=== PATIENT | male | born 1945 | race Caucasian/White ===

== ENCOUNTER 2022-11-16 06:22 | Day surgery (SDC) | payer MEDICARE, BC ==
[2022-11-16] VITALS (11 sets, daily range): BP systolic 116–155; BP diastolic 42–63
[~2022-11-16] VITALS: Ht 167.6 cm; Wt 84.1 kg
[2022-11-16] MEDS ORDERED: diphenhydrAMINE 25mg capsule PO PRN (06:40)
[2022-11-16] MEDS ORDERED: normal saline 1,000 ML IV SCH (06:40)
[2022-11-16 07:34] LABS: BASOPHILS % (AUTO) 0.3 % (0-1); EOSINOPHILS # (AUTO) 0.2 X10'3 (0-0.9); EOSINOPHILS % (AUTO) 2.9 % (0-6); HEMATOCRIT 29.9 % (42.0-52.0); HEMOGLOBIN 9.6 g/dl (14.0-17.9); LYMPHOCYTES # (AUTO) 1.2 X10'3 (1.1-4.8); LYMPHOCYTES % (AUTO) 17.4 % (21-51); MEAN CORPUSCULAR HEMOGLOBIN 26.1 PG (27.0-31.0); MEAN CORPUSCULAR HGB CONC 32.1 g/dL (33.0-36.5); MEAN CORPUSCULAR VOLUME 81.4 FL (78-98); MEAN PLATELET VOLUME 8.9 FL (7.4-10.4); MONOCYTES # (AUTO) 0.8 X10'3 (0-0.9); MONOCYTES % (AUTO) 10.9 % (2-12); NEUTROPHILS # (AUTO) 4.7 X10'3 (1.8-7.7); NEUTROPHILS % (AUTO) 68.5 % (42-75); PLATELET COUNT 294 X10'3 (140-440); RED BLOOD COUNT 3.67 X10'6 (4.70-6.10); RED CELL DISTRIBUTION WIDTH 19.5 % (11.5-14.5); WHITE BLOOD COUNT 6.9 X10'3 (4.5-11.0)
[2022-11-16 08:05] LABS: ANION GAP 9 (8-16); BLOOD UREA NITROGEN 11 MG/DL (7-18); BUN/CREATININE RATIO 12.4 (10.0-20.0); CALCIUM 9.2 MG/DL (8.5-10.1); CHLORIDE 103 MMOL/L (99-107); CREATININE 0.89 MG/DL (0.60-1.10); GLUCOSE 124 MG/DL (70-104); MAGNESIUM 1.5 MG/DL (1.5-2.4); POTASSIUM 3.4 MMOL/L (3.5-5.1); SODIUM 140 MMOL/L (135-145); eGFR 83 ML/MIN
[2022-11-16 08:15] LABS: ANISOCYTOSIS 2+; ELLIPTOCYTES 1+; PLATELET ESTIMATE NORMAL; SCHISTOCYTES FEW
[2022-11-16] MEDS ORDERED: METF-900 PO (08:21)
[2022-11-16] MEDS ORDERED: CLOP75TA33 PO (08:21)
[2022-11-16] MEDS ORDERED: PRAM0.5T3 PO (08:21)
[2022-11-16] MEDS ORDERED: OXYB5TAB16 PO (08:21)
[2022-11-16] MEDS ORDERED: DOCU100C40 PO (08:21)
[2022-11-16] MEDS ORDERED: ROSU40TA PO (08:21)
[2022-11-16] MEDS ORDERED: TRAM50TA2 PO (08:21)
[2022-11-16] MEDS ORDERED: LISI40TA13 PO (08:21)
[2022-11-16] MEDS ORDERED: SPIR25TA5 PO (08:21)
[2022-11-16] MEDS ORDERED: GUAN1TAB28 PO (08:21)
[2022-11-16] MEDS ORDERED: CHOL10006 PO (08:21)
[2022-11-16] MEDS ORDERED: FOLI1TAB27 PO (08:21)
[2022-11-16] MEDS ORDERED: OMEG-5 PO (08:21)
[2022-11-16] MEDS ORDERED: SEMA0.258 SQ (08:21)
[2022-11-16] MEDS ORDERED: fentaNYL/PF 50MCG/1 ML 2ML syringe ONE (08:39)
[2022-11-16] MEDS ORDERED: heparin 1,000unit/ml 10ml vial 10 ML ONE (08:40)
[2022-11-16] MEDS ORDERED: midazolam 1 mg/ML 2ml injection ONE ×3 (08:40→09:58)
[2022-11-16] MEDS ORDERED: LIDOcaine 1% 30ml preserv. free vial ONE (08:40)
[2022-11-16] MEDS ORDERED: iohexol 350MG/ML 100ml bottle IV ONE (08:40)
[2022-11-16] MEDS ORDERED: ondansetron/PF 4mg/2ml inj IV PRN (11:30)
[2022-11-16] MEDS ORDERED: normal saline 1000ml 1,000 ML IV SCH (11:30)
[2022-11-16] MEDS ORDERED: proCHLORperazine 10 MG/2 ml inj IV PRN (11:30)
== END 2022-11-16 15:05 | disposition home or self-care (01) ==
LOC: SSTAY O 06:22
PROVIDERS: ATTEND Internal Medicine Cardiovascular Disease
DX: E11.51 Type 2 diabetes mellitus with diabetic peripheral angiopathy without gangrene (principal); I70.213 Atherosclerosis of native arteries of extremities with intermittent claudication, bilateral legs; I10 Essential (primary) hypertension; I25.2 Old myocardial infarction; I35.0 Nonrheumatic aortic (valve) stenosis; Z95.1 Presence of aortocoronary bypass graft; Z95.3 Presence of xenogenic heart valve; Z79.01 Long term (current) use of anticoagulants; Z79.899 Other long term (current) drug therapy; Z95.5 Presence of coronary angioplasty implant and graft; Z96.651 Presence of right artificial knee joint; Z90.49 Acquired absence of other specified parts of digestive tract; Z98.890 Other specified postprocedural states; Z87.891 Personal history of nicotine dependence; Z88.0 Allergy status to penicillin; Z88.5 Allergy status to narcotic agent; Z88.8 Allergy status to other drugs, medicaments and biological substances; Z82.49 Family history of ischemic heart disease and other diseases of the circulatory system
CPT/HCPCS: 36140; 36245; 36415; 75716; 80048; 82948; 83735; 85025; 85610; 93005; 99152; 99153; C1894; J1644; J2250; J3010; J3490; J7030; Q0163; Q9967; 85008; A4620; A6258; C1769

== ENCOUNTER 2023-01-25 08:00 | Inpatient (IN) | payer MEDICARE, BC ==
[2023-01-17 14:00] LABS: BASOPHILS % (AUTO) 0.3 % (0-1); EOSINOPHILS # (AUTO) 0.1 X10'3 (0-0.9); EOSINOPHILS % (AUTO) 1.8 % (0-6); LYMPHOCYTES # (AUTO) 1.2 X10'3 (1.1-4.8); LYMPHOCYTES % (AUTO) 15.8 % (21-51); MEAN CORPUSCULAR HEMOGLOBIN 25.2 PG (27.0-31.0); MEAN CORPUSCULAR HGB CONC 32.9 g/dL (33.0-36.5); MEAN CORPUSCULAR VOLUME 76.8 FL (78-98); MEAN PLATELET VOLUME 9.3 FL (7.4-10.4); MONOCYTES # (AUTO) 0.6 X10'3 (0-0.9); MONOCYTES % (AUTO) 7.5 % (2-12); NEUTROPHILS # (AUTO) 5.8 X10'3 (1.8-7.7); NEUTROPHILS % (AUTO) 74.6 % (42-75); PRE OP HEMATOCRIT 35.2 % (42.0-52.0); PRE OP HEMOGLOBIN 11.6 g/dL (14.0-17.9); PRE OP PLATELET COUNT 256 X10'3 (140-440); RED BLOOD COUNT 4.59 X10'6 (4.70-6.10); RED CELL DISTRIBUTION WIDTH 19.4 % (11.5-14.5)
[2023-01-17 14:04] LABS: CLARITY,URINE CLOUDY (Clear); COLOR,URINE STRAW (Yellow); GLUCOSE, URINE NEGATIVE (Neg); KETONES,URINE NEGATIVE (Neg); LEUKOCYTE ESTERASE ,URINE MODERATE (Neg); NITRITES, URINE NEGATIVE (Neg); OCCULT BLOOD,URINE TRACE-INTACT (Neg); PH,URINE 6.5 (4.8-8.0); PROTEIN,URINE 30 mg/dl (Neg); UROBILINOGEN,URINE 0.2 E.U/dL (0.2-1.0)
[2023-01-17 14:09] LABS: UA COLLECTION TYPE NON-SPECIFIED
[2023-01-17 14:11] LABS: SQUAMOUS EPITHELIAL CELL,UR FEW /LPF (FEW)
[2023-01-17 14:12] LABS: WBC CLUMPS,URINE FEW /HPF (NEGATIVE)
[2023-01-17 14:15] LABS: PRE OP PROTIME 10.9 SECONDS (9.0-12.0)
[2023-01-17 14:15] LABS: BACTERIA,URINE 1+ /HPF (Neg)
[2023-01-17 14:16] LABS: ALBUMIN 3.8 G/DL (3.4-5.0); ALKALINE PHOSPHATASE 102 IU/L (46-116); BLOOD UREA NITROGEN 15 MG/DL (7-18); CALCIUM 9.7 MG/DL (8.5-10.1); CHLORIDE 102 MMOL/L (99-107); CREATININE 0.94 MG/DL (0.60-1.10); PRE OP ALT 36 U/L (30-65); PRE OP ANION GAP 8 (8-16); PRE OP AST 26 U/L (10-37); PRE OP BILIRUB, TOTAL 0.5 MG/DL (0.0-1.0); PRE OP GLUCOSE 102 MG/DL (70-104); PRE OP POTASSIUM 3.8 MMOL/L (3.4-5.1); PRE OP SODIUM 139 MMOL/L (135-145); TOTAL CARBON DIOXIDE 29.4 MMOL/L (24-32); TOTAL PROTEIN 7.7 G/DL (6.4-8.2); eGFR 78 ML/MIN
[2023-01-17 14:17] LABS: WBC,URINE 50-100 /HPF (0-4)
[2023-01-17 14:19] LABS: MUCUS STRANDS MODERATE /LPF (Neg)
[2023-01-17 14:26] LABS: ANISOCYTOSIS 2+; ELLIPTOCYTES FEW; MICROCYTOSIS 1+; PLATELET ESTIMATE NORMAL
[2023-01-17 14:35] LABS: HEMOGLOBIN A1C 6.5 % (4.5-6.2)
[2023-01-23 07:30] LABS: ABG BASE EXCESS -1.4 mmol/L (-2.0-2.0); ABG HCO3 21.4 mmol/L (22.0-26.0); ABG OXYGEN SATURATION 96.9 % (94-97); ABG PCO2 (T) 30.2 mmHg (35.0-48.0); ABG PO2 (T) 90.8 mmHg (75.0-100.0); ALLEN'S TEST POSITIVE; FCOHb 0.3 % (0.0-3.9); FMetHb 0.2 % (0.0-1.5); FO2Hb 96.4 % (94-97); TOTAL HEMOGLOBIN 12.2 G/dl (14.0-17.9)
[2023-01-25] VITALS (20 sets, daily range): BP systolic 74–165; BP diastolic 40–87
[~2023-01-25] VITALS: Ht 167.6 cm; Wt 87.0 kg
[~2023-01-25 08:00] MED LIST: ASCO-139 PO; CHOL10006 PO; CLOP75TA33 PO; DOCU100C40 PO; FOLI1TAB27 PO; GUAN1TAB28 PO; LISI40TA13 PO; METF-900 PO; OMEG-5 PO; OXYB5TAB16 PO; PANT40TA54 PO; PRAM0.5T3 PO; ROSU40TA PO; SEMA0.258 SQ; SPIR25TA5 PO; TRAM50TA2 PO; cefazolin 2gm/D5W 100mL 100 ML IV ONE; famotidine 20mg tablet PO ONE; metoprolol tartrate 12.5mg (1/2 tablet) PO ONE; mupirocin 2% nasal ointment 1gm UD NS ONE; nitroPRUSSIDE (NIPRIDE) (200MCG/ML) 100ML Drip IV SCH; phenylephrine inj 50 MG in normal saline 250ml IV solN IV SCH; ringers solution, lacted 1,000 ML IV SCH
[2023-01-25] MEDS ORDERED: midazolam 1 mg/ML 2ml injection ONE ×2 (13:27→13:28)
[2023-01-25] MEDS ORDERED: fentaNYL /PF 50mcg/ml 5ml ampule ONE ×2 (13:28→16:06)
[2023-01-25] MEDS ORDERED: rocuronium 10mg/ml inj IV ONE ×2 (13:28→13:38)
[2023-01-25] MEDS ORDERED: sevoflurane 250ml liquid IH ONE (13:38)
[2023-01-25] MEDS ORDERED: protamine sulf. 10mg/ml inj. IV ONE (13:38)
[2023-01-25] MEDS ORDERED: propofol inj 20 ML IV ONE (14:47)
[2023-01-25] MEDS ORDERED: heparin 1,000unit/ml 10ml vial 10 ML ONE (14:47)
[2023-01-25] MEDS ORDERED: ePHEDrine 50MG/ML INJ. ONE (14:48)
[2023-01-25 15:53] LABS: ABG BASE EXCESS -9.8 mmol/L (-2.0-2.0); ABG HCO3 15.3 mmol/L (22.0-26.0); ABG OXYGEN SATURATION 99.6 % (94-97); ABG PCO2 31.5 mmHg (35.0-48.0); ABG PO2 249.9 mmHg (75.0-100.0); CL (ABG) 108 mmol/L (99-107); FCOHb 0.1 % (0.0-3.9); FMetHb 0.3 % (0.0-1.5); FO2Hb 99.2 % (94-97); GLUCOSE (ABG) 250 mg/dl (70-104); IONIZED CA (ABG) 1.03 mmol/L (1.10-1.30); K (ABG) 3.3 mmol/L (3.5-5.1); TOTAL HEMOGLOBIN 12.3 G/dl (14.0-17.9)
[2023-01-25] MEDS ORDERED: propofol 1000mg/100ml bottle 100 ML IV SCH (16:15)
[2023-01-25] MEDS ORDERED: FENTANYL-0.9 % NACL/PF 100 ML IV PRN ×2 (16:15→18:55)
[2023-01-25] MEDS ORDERED: propofol 1000mg/100ml bottle 100 ML IV ONE (16:21)
[2023-01-25] MEDS ORDERED: epiNEPHrine 1 mg/ml inj ONE (16:32)
--- NOTE | 2023-01-25 16:42 | NUR ---
Received from OR via HOSPITAL BED, accompanied by Anesthesiologist and report given by TANESHA Anesthesiologist. PATIENT SEDATED AND INTUBATED, NO S/S OF PAIN, V/S WNL, 20G TO LEFT FOREARM, ART LINE LEFT RADIAL, CENTRAL LINE RIGHT IJ. RIGHT NARES NG TUBE. F/C DRAINING CLEAR YELLOW URINE. ABDOMEN AND RIGHT [place] DRESSING C/D/I. LR CURRENTLY RUNNING. RIGHT PEDAL PULSES NOTED VIA DOPPLER. LEFT FEMORAL PULSE IS PALPABLE. SOFT RESTRAINT ON BILATERAL UPPER EXTREMITY WAS APPLIED. NO S/S OF DISTRESS AT THIS TIME. WILL KEEP MONITORING. Addendum: 01/25/23 at 1806 by Teddy Main RN Amended: Links added.
[2023-01-25 17:01] LABS: ABG HCO3 19.3 mmol/L (22.0-26.0); ABG OXYGEN SATURATION 98.7 % (94-97); ABG PCO2 (T) 32.8 mmHg (35.0-48.0); ABG PO2 (T) 151.6 mmHg (75.0-100.0); FCOHb 0.3 % (0.0-3.9); FMetHb 0.4 % (0.0-1.5); PATIENT TEMPERATURE 36.3; PEEP 5 cm H2O; RESPIRATORY RATE 12 b/min; TIDAL VOLUME 500 mL
[2023-01-25] MEDS ORDERED: ringers solution, lacted 1,000 ML IV SCH (17:10)
[2023-01-25] MEDS ORDERED: ondansetron/PF 4mg/2ml inj IV PRN (17:10)
[2023-01-25] MEDS ORDERED: albumin (Human) 5% 250ml 250 ML IV ONE ×3 (17:13→22:15)
[2023-01-25] MEDS ORDERED: potassium CL 10mEq/100ml bag 100 ML IV PRN (17:15)
[2023-01-25] MEDS ORDERED: NORepinephrine 8mg/ 250ml NS 250 ML IV PRN (17:15)
[2023-01-25] MEDS ORDERED: insulin glargine (Lantus) pen - multi-dose SQ PRN (17:15)
[2023-01-25] MEDS ORDERED: Insulin Reg/NS 100units/100mL 100 ML IV SCH (17:15)
[2023-01-25] MEDS ORDERED: mineral oil 133ml enema RC PRN (17:15)
[2023-01-25] MEDS ORDERED: potassium Cl 40MEQ/270ML bag 250 ML IV PRN (17:15)
[2023-01-25] MEDS ORDERED: magnesium 4gm in 100ml NS 100 ML IV PRN (17:15)
[2023-01-25] MEDS ORDERED: sodium phosphate inj. 15 MMOL in dextrose 5%-water 250 ML IV PRN (17:15)
[2023-01-25] MEDS ORDERED: sodium phosphate inj. 30 MMOL in dextrose 5%-water 250 ML IV PRN (17:15)
[2023-01-25] MEDS ORDERED: dextrose 50%-water 50ml dispensing syringe IV PRN ×3 (17:15→18:55)
[2023-01-25] MEDS ORDERED: metoclopramide 5 mg/ml inj IV PRN (17:15)
[2023-01-25] MEDS ORDERED: potassium Cl 40MEQ/1/2NS 520ml 520 ML IV PRN (17:15)
[2023-01-25] MEDS ORDERED: bisacodyl 10mg suppository rectal RC PRN (17:15)
[2023-01-25 17:20] LABS: ALBUMIN 2.1 G/DL (3.4-5.0); ANION GAP 12 (8-16); BLOOD UREA NITROGEN 12 MG/DL (7-18); BUN/CREATININE RATIO 17.9 (10.0-20.0); CALCIUM 7.2 MG/DL (8.5-10.1); CHLORIDE 111 MMOL/L (99-107); CREATININE 0.67 MG/DL (0.60-1.10); GLUCOSE 185 MG/DL (70-104); SODIUM 142 MMOL/L (135-145); eGFR > 90 ML/MIN
[2023-01-25 17:22] LABS: BASOPHILS % (AUTO) 0.2 % (0-1); EOSINOPHILS # (AUTO) 0.1 X10'3 (0-0.9); HEMATOCRIT 37.5 % (42.0-52.0); LYMPHOCYTES # (AUTO) 0.9 X10'3 (1.1-4.8); MEAN CORPUSCULAR HEMOGLOBIN 25.8 PG (27.0-31.0); MEAN CORPUSCULAR HGB CONC 32.1 g/dL (33.0-36.5); MEAN CORPUSCULAR VOLUME 80.5 FL (78-98); MEAN PLATELET VOLUME 10.1 FL (7.4-10.4); MONOCYTES # (AUTO) 0.9 X10'3 (0-0.9); MONOCYTES % (AUTO) 6.2 % (2-12); NEUTROPHILS % (AUTO) 86.6 % (42-75); PLATELET COUNT 122 X10'3 (140-440); RED BLOOD COUNT 4.66 X10'6 (4.70-6.10)
[2023-01-25 17:28] LABS: POTASSIUM 2.9 MMOL/L (3.5-5.1)
[2023-01-25 17:51] LABS: ANISOCYTOSIS 2+
[2023-01-25 17:52] LABS: BURR CELLS 2+; ELLIPTOCYTES 1+; PLATELET ESTIMATE DECREASED
--- NOTE | 2023-01-25 17:52 | NUR ---
PATIENT HAS MET ALL CRITERIA FOR TRANSFER TO ICU FLOOR. VSS. DRESSINGS INTACT. BED LOW AND 2 RAILS UP. RN PRESENT TO ACCEPT CARE OF PATIENT AND REPORT HAS BEEN CALLED. ALL QUESTIONS ANSWERED TO ACCEPTING RN. Addendum: 01/25/23 at 1818 by Teddy Main RN Amended: Links added.
[2023-01-25] MEDS: sodium chloride 0.45% 1,000 ML IV SCH (18:00)
--- NOTE | 2023-01-25 18:09 | NUR ---
Patient in room ICU 2042. I have received report from Teddy BRIGGS from PACU and had the opportunity to ask questions and assume patient care. Pt settled in bed. Art and PA connected and zeroed. Pt on monitor, Nicholson to gravity drain. Fentanyl & Prop. running as per PACU rate. Reported that Fentanyl started in route to ICU at rate of 25. Pt basically connected to monitor, pumps and patient report given, questions answered & plan of care reviewed with Darrel BRIGGS.
[2023-01-25] MEDS: potassium Cl 20mEq/100mL bag 100 ML IV PRN ×4 (18:13→22:22)
--- NOTE | 2023-01-25 18:44 | NUR ---
Called Dr. Dixon to clarify some orders and goals of care. OK to leave intubated over night. OK to re-order Fentanyl drip (it's hanging anyhow). OK to DC insulin drip protocol and use hyperglycemia protocol.
[2023-01-25] MEDS: albumin (Human) 5% 250ml 250 ML IV PRN ×3 (18:49→21:44)
[2023-01-25] MEDS ORDERED: MESSAGE TO PHARMACY PO ONE (18:55)
[2023-01-25] MEDS ORDERED: DEXTROSE 15 GM of carb/4 tabs (each vial/BOTTLE has 4 tablets) PO PRN ×2 (18:55)
[2023-01-25] MEDS ORDERED: glucagon, human recombinant 1mg kit SUBCUT PRN (18:55)
[2023-01-25] MEDS ORDERED: insulin Lispro (HumaLOG) vial - multi-dose SQ SCH (18:55)
[2023-01-25] MEDS: insulin glargine (Lantus) pen - multi-dose SQ SCH (20:00)
[2023-01-25] MEDS: atorvastatin 10mg tablet PO SCH (20:04)
[2023-01-25] MEDS: mupirocin 2% nasal ointment 1gm UD NS SCH (20:04)
[2023-01-25 20:12] LABS: BASOPHILS % (AUTO) 0.2 % (0-1); EOSINOPHILS # (AUTO) 0.1 X10'3 (0-0.9); EOSINOPHILS % (AUTO) 0.3 % (0-6); HEMATOCRIT 36.1 % (42.0-52.0); HEMOGLOBIN 11.5 g/dl (14.0-17.9); LYMPHOCYTES # (AUTO) 0.7 X10'3 (1.1-4.8); LYMPHOCYTES % (AUTO) 3.5 % (21-51); MEAN CORPUSCULAR HEMOGLOBIN 25.7 PG (27.0-31.0); MEAN CORPUSCULAR VOLUME 80.3 FL (78-98); MEAN PLATELET VOLUME 9.6 FL (7.4-10.4); MONOCYTES # (AUTO) 1.4 X10'3 (0-0.9); MONOCYTES % (AUTO) 7.5 % (2-12); NEUTROPHILS # (AUTO) 16.4 X10'3 (1.8-7.7); NEUTROPHILS % (AUTO) 88.5 % (42-75); PLATELET COUNT 121 X10'3 (140-440); RED CELL DISTRIBUTION WIDTH 18.9 % (11.5-14.5); WHITE BLOOD COUNT 18.5 X10'3 (4.5-11.0)
[2023-01-25] MEDS: propofol 1000mg/100ml bottle 100 ML IV SCH (20:45)
--- NOTE | 2023-01-25 22:03 | NUR ---
Called Dr. Dixon regarding hypotension. Notified him I have used all 3 of my albumins from the order set. Orders to give 1 dose of albumin (250ml of 5%) at a time t/o the night as long as his hemoglobin is OK. Notified him that the pt is in his usual rhythm (SR with PACs that don't perfuse) but his overall rate has slowed to 50ish with his perfusing rate being about 43-45 (EKG done and placed in chart), orders for Dopamine at set rate of 2mcg/kg/min for HR improvement.
[2023-01-25] MEDS ORDERED: DOPamine 400mg/D5W 250ml 250 ML IV PRN (22:05)
--- NOTE | 2023-01-25 22:54 | NUR ---
Ac Edwards applied for hypothermia
[2023-01-25 23:23] LABS: BASOPHILS # (AUTO) 0.1 X10'3 (0-0.2); BASOPHILS % (AUTO) 0.5 % (0-1); EOSINOPHILS % (AUTO) 0 % (0-6); HEMATOCRIT 30.7 % (42.0-52.0); HEMOGLOBIN 9.9 g/dl (14.0-17.9); LYMPHOCYTES # (AUTO) 0.5 X10'3 (1.1-4.8); LYMPHOCYTES % (AUTO) 2.8 % (21-51); MEAN CORPUSCULAR HEMOGLOBIN 25.7 PG (27.0-31.0); MEAN CORPUSCULAR HGB CONC 32.2 g/dL (33.0-36.5); MEAN CORPUSCULAR VOLUME 79.7 FL (78-98); MEAN PLATELET VOLUME 9.9 FL (7.4-10.4); MONOCYTES # (AUTO) 0.8 X10'3 (0-0.9); NEUTROPHILS # (AUTO) 15.5 X10'3 (1.8-7.7); NEUTROPHILS % (AUTO) 91.7 % (42-75); PLATELET COUNT 110 X10'3 (140-440); RED BLOOD COUNT 3.86 X10'6 (4.70-6.10); RED CELL DISTRIBUTION WIDTH 18.6 % (11.5-14.5); WHITE BLOOD COUNT 16.9 X10'3 (4.5-11.0)
[2023-01-25 23:27] LABS: ALBUMIN 3.7 G/DL (3.4-5.0); ANION GAP 11 (8-16); BLOOD UREA NITROGEN 15 MG/DL (7-18); BUN/CREATININE RATIO 16.5 (10.0-20.0); CALCIUM 7.2 MG/DL (8.5-10.1); CHLORIDE 111 MMOL/L (99-107); CREATININE 0.91 MG/DL (0.60-1.10); GLUCOSE 143 MG/DL (70-104); MAGNESIUM 1.2 MG/DL (1.5-2.4); PHOSPHORUS 3.2 MG/DL (2.3-4.5); POTASSIUM 5.1 MMOL/L (3.5-5.1); SODIUM 144 MMOL/L (135-145); eGFR 81 ML/MIN
[2023-01-25] MEDS: magnesium 2GM in 50ml NS 50 ML IV PRN (23:33)
[2023-01-25] MEDS: niCARDipine-NS 40mg/200ml IVPB 200 ML IV PRN (23:50)
[2023-01-25] MEDS: ceFAZolin/D5W- 1GM premix 50 ML IV SCH (23:52)
[2023-01-26] VITALS (26 sets, daily range): BP systolic 106–155; BP diastolic 40–73
[2023-01-26 03:10] LABS: BASOPHILS % (AUTO) 0.1 % (0-1); EOSINOPHILS % (AUTO) 0.1 % (0-6); HEMATOCRIT 29.3 % (42.0-52.0); HEMOGLOBIN 9.6 g/dl (14.0-17.9); LYMPHOCYTES # (AUTO) 0.6 X10'3 (1.1-4.8); LYMPHOCYTES % (AUTO) 3.9 % (21-51); MEAN CORPUSCULAR HGB CONC 32.6 g/dL (33.0-36.5); MEAN CORPUSCULAR VOLUME 79.8 FL (78-98); MEAN PLATELET VOLUME 10.2 FL (7.4-10.4); MONOCYTES # (AUTO) 1.1 X10'3 (0-0.9); MONOCYTES % (AUTO) 6.7 % (2-12); NEUTROPHILS # (AUTO) 14.2 X10'3 (1.8-7.7); NEUTROPHILS % (AUTO) 89.2 % (42-75); PLATELET COUNT 119 X10'3 (140-440); RED BLOOD COUNT 3.67 X10'6 (4.70-6.10); RED CELL DISTRIBUTION WIDTH 18.7 % (11.5-14.5); WHITE BLOOD COUNT 15.9 X10'3 (4.5-11.0)
--- NOTE | 2023-01-26 03:13 | NUR ---
Pt's BP continues to be rather labile through out the night. He often requires just a 1mg/hr rate of nicardapine to treat his hypertension when he is awake. When he falls back to sleep/sedated he requires dopamine (occasionally less than the ordered 2mcg/kg/min but never over that). Pt got 1250ml of albumin 5% since surgery. Last Hgb < 10 so holding off on that for now and just using his drips.
[2023-01-26 03:20] LABS: ALANINE AMINOTRANSFERASE 17 U/L (12-78); ALBUMIN 3.5 G/DL (3.4-5.0); ALBUMIN/GLOBULIN RATIO 2.5 (1.1-1.5); ALKALINE PHOSPHATASE 43 IU/L (46-116); ANION GAP 10 (8-16); ASPARTATE AMINO TRANSFERASE 19 U/L (10-37); BILIRUBIN,TOTAL 0.5 MG/DL (0.1-1.0); BLOOD UREA NITROGEN 14 MG/DL (7-18); BUN/CREATININE RATIO 15.9 (10.0-20.0); CALCIUM 7.5 MG/DL (8.5-10.1); CHLORIDE 110 MMOL/L (99-107); CREATININE 0.88 MG/DL (0.60-1.10); GLUCOSE 161 MG/DL (70-104); MAGNESIUM 2.8 MG/DL (1.5-2.4); POTASSIUM 4.5 MMOL/L (3.5-5.1); SODIUM 141 MMOL/L (135-145); TOTAL CARBON DIOXIDE 20.6 MMOL/L (24-32); TOTAL PROTEIN 4.9 G/DL (6.4-8.2); TRIGLYCERIDES 125 MG/DL (20-135); eGFR 84 ML/MIN
[2023-01-26 03:27] LABS: ABG BASE EXCESS -3.8 mmol/L (-2.0-2.0); ABG HCO3 21.5 mmol/L (22.0-26.0); ABG OXYGEN SATURATION 92.7 % (94-97); ABG PCO2 (T) 41.5 mmHg (35.0-48.0); ABG PO2 (T) 76.7 mmHg (75.0-100.0); FCOHb 0.3 % (0.0-3.9); FMetHb 0.4 % (0.0-1.5); FO2Hb 92.1 % (94-97); PATIENT TEMPERATURE 37.8; PEEP 5 cm H2O; RESPIRATORY RATE 12 b/min; TIDAL VOLUME 500 mL; TOTAL HEMOGLOBIN 10.4 G/dl (14.0-17.9)
[2023-01-26] MEDS: propofol 1000mg/100ml bottle 100 ML IV SCH (03:52)
--- NOTE | 2023-01-26 04:49 | NUR ---
Pt continues to wake up despite boluses of sedation. Pt completely appropriate, stable t/o the night. MD notified, OK to extubate if he meets parameters.
--- NOTE | 2023-01-26 05:00 | NUR ---
Extubated to 2L NC. Tolerating well, no issues.
[2023-01-26] MEDS: morphine 4 MG/ML inj SYRINge IV PRN ×7 (05:42→21:15)
--- NOTE | 2023-01-26 06:30 | NUR ---
Patient in room ICU 2042. I have received report from germain and had the opportunity to ask questions and assume patient care.
[2023-01-26] MEDS: oxybutynin 5mg tablet PO SCH (09:00)
[2023-01-26] MEDS: ceFAZolin/D5W- 1GM premix 50 ML IV SCH ×2 (09:22→16:28)
[2023-01-26] MEDS: mupirocin 2% nasal ointment 1gm UD NS SCH ×2 (09:22→19:40)
--- NOTE | 2023-01-26 12:55 | NUR ---
pt awake and alert, c/o continual dry mouth and abd pain. discussed pain med with pa and md as ms 4mg is short acting, but does help- wanting pt to remain npo with ice chips sparingly. at bs intermittently.
[2023-01-26] MEDS: acetaminophen 325mg tablet PO PRN (16:28)
--- NOTE | 2023-01-26 17:16 | NUR ---
temp up- tylenol given. pt went from nonproductive cough to productive cough- small brown thick sx. using is and flutter valve now on own with encouragement. tolerated dangle with PT fairly well.
--- NOTE | 2023-01-26 18:47 | NUR ---
Reviewed chart at bedside with pt. Goals for tonight are work on Pulmonary Toilet, control temp and pain. Monitor bowels for increased bowel sounds. Minimal ice ships OK with MD, pt got PO meds earlier and tolerated well. Sat up at bedside with PT today but did not get out, will try tomorrow. Very low dose Nicardapine started for SBP>140. Worked on IS and flutter valve with pt.
[2023-01-26] MEDS: insulin glargine (Lantus) pen - multi-dose SQ SCH (19:10)
[2023-01-26] MEDS: atorvastatin 10mg tablet PO SCH (19:40)
[2023-01-26] MEDS: enoxaparin 40mg/0.4ml syringe SUBCUT SCH (19:40)
[2023-01-26] MEDS ORDERED: mineral oil/petrolatum ophthal oint EACHEYE SCH (20:00)
[2023-01-27] VITALS (24 sets, daily range): BP systolic 112–159; BP diastolic 45–65
[2023-01-27] MEDS: ceFAZolin/D5W- 1GM premix 50 ML IV SCH ×2 (00:15→08:27)
[2023-01-27 02:49] LABS: BASOPHILS % (AUTO) 0.4 % (0-1); EOSINOPHILS # (AUTO) 0.3 X10'3 (0-0.9); EOSINOPHILS % (AUTO) 2.4 % (0-6); HEMATOCRIT 29.9 % (42.0-52.0); HEMOGLOBIN 9.5 g/dl (14.0-17.9); LYMPHOCYTES # (AUTO) 0.9 X10'3 (1.1-4.8); MEAN CORPUSCULAR HEMOGLOBIN 25.7 PG (27.0-31.0); MEAN CORPUSCULAR HGB CONC 31.8 g/dL (33.0-36.5); MEAN CORPUSCULAR VOLUME 80.7 FL (78-98); MEAN PLATELET VOLUME 10.3 FL (7.4-10.4); MONOCYTES # (AUTO) 1.3 X10'3 (0-0.9); MONOCYTES % (AUTO) 9.7 % (2-12); NEUTROPHILS # (AUTO) 10.4 X10'3 (1.8-7.7); NEUTROPHILS % (AUTO) 80.5 % (42-75); PLATELET COUNT 113 X10'3 (140-440); RED BLOOD COUNT 3.71 X10'6 (4.70-6.10); RED CELL DISTRIBUTION WIDTH 19.1 % (11.5-14.5); WHITE BLOOD COUNT 12.9 X10'3 (4.5-11.0)
[2023-01-27 02:58] LABS: ALBUMIN 3.1 G/DL (3.4-5.0); ANION GAP 10 (8-16); BLOOD UREA NITROGEN 8 MG/DL (7-18); BUN/CREATININE RATIO 10.4 (10.0-20.0); CALCIUM 8.1 MG/DL (8.5-10.1); CHLORIDE 108 MMOL/L (99-107); CREATININE 0.77 MG/DL (0.60-1.10); GLUCOSE 139 MG/DL (70-104); POTASSIUM 3.9 MMOL/L (3.5-5.1); SODIUM 141 MMOL/L (135-145); TOTAL CARBON DIOXIDE 22.9 MMOL/L (24-32); eGFR > 90 ML/MIN
[2023-01-27] MEDS: morphine 4 MG/ML inj SYRINge IV PRN ×6 (04:22→23:51)
[2023-01-27] MEDS: niCARDipine-NS 40mg/200ml IVPB 200 ML IV PRN ×3 (04:28→20:02)
[2023-01-27 04:59] LABS: ANISOCYTOSIS 2+; PLATELET ESTIMATE DECREASED
[2023-01-27 05:00] LABS: ELLIPTOCYTES 1+
[2023-01-27 05:01] LABS: BURR CELLS 1+; POIKILOCYTOSIS FEW; SCHISTOCYTES FEW
[2023-01-27] MEDS: acetaminophen 325mg tablet PO PRN ×2 (05:01→21:25)
--- NOTE | 2023-01-27 06:30 | NUR ---
Patient in room ICU 2042. I have received report from CHESTER Rojo and had the opportunity to ask questions and assume patient care.
[2023-01-27] MEDS: mupirocin 2% nasal ointment 1gm UD NS SCH (08:39)
[2023-01-27] MEDS: enoxaparin 40mg/0.4ml syringe SUBCUT SCH ×2 (08:39→20:14)
[2023-01-27] MEDS: oxybutynin 5mg tablet PO SCH (08:40)
[2023-01-27] MEDS: sodium chloride 0.45% 1,000 ML IV SCH (17:15)
--- NOTE | 2023-01-27 18:21 | NUR ---
Problems reprioritized. Patient report given, questions answered & plan of care reviewed with CHESTER Degroot.
[2023-01-27] MEDS: atorvastatin 10mg tablet PO SCH (20:14)
[2023-01-27] MEDS: insulin glargine (Lantus) pen - multi-dose SQ SCH (20:41)
[2023-01-28] VITALS (20 sets, daily range): BP systolic 115–171; BP diastolic 49–83
[2023-01-28] MEDS: morphine 4 MG/ML inj SYRINge IV PRN ×5 (00:44→18:19)
[2023-01-28 04:31] LABS: BASOPHILS % (AUTO) 0.3 % (0-1); EOSINOPHILS # (AUTO) 0.4 X10'3 (0-0.9); HEMATOCRIT 27.3 % (42.0-52.0); LYMPHOCYTES # (AUTO) 0.9 X10'3 (1.1-4.8); LYMPHOCYTES % (AUTO) 7.5 % (21-51); MEAN CORPUSCULAR HEMOGLOBIN 26.4 PG (27.0-31.0); MEAN CORPUSCULAR HGB CONC 32.8 g/dL (33.0-36.5); MEAN CORPUSCULAR VOLUME 80.7 FL (78-98); MEAN PLATELET VOLUME 9.7 FL (7.4-10.4); MONOCYTES # (AUTO) 1.3 X10'3 (0-0.9); MONOCYTES % (AUTO) 10.6 % (2-12); NEUTROPHILS # (AUTO) 9.3 X10'3 (1.8-7.7); NEUTROPHILS % (AUTO) 78.6 % (42-75); PLATELET COUNT 136 X10'3 (140-440); RED BLOOD COUNT 3.39 X10'6 (4.70-6.10); RED CELL DISTRIBUTION WIDTH 18.6 % (11.5-14.5); WHITE BLOOD COUNT 11.9 X10'3 (4.5-11.0)
[2023-01-28 04:34] LABS: ALBUMIN 2.8 G/DL (3.4-5.0); ANION GAP 7 (8-16); BLOOD UREA NITROGEN 7 MG/DL (7-18); BUN/CREATININE RATIO 7.8 (10.0-20.0); CALCIUM 8.5 MG/DL (8.5-10.1); CHLORIDE 106 MMOL/L (99-107); GLUCOSE 133 MG/DL (70-104); POTASSIUM 3.8 MMOL/L (3.5-5.1); SODIUM 139 MMOL/L (135-145); TOTAL CARBON DIOXIDE 25.8 MMOL/L (24-32); eGFR 82 ML/MIN
[2023-01-28] MEDS: acetaminophen 325mg tablet PO PRN ×3 (05:34→22:52)
[2023-01-28] MEDS: potassium Cl 20mEq/100mL bag 100 ML IV PRN (05:34)
--- NOTE | 2023-01-28 06:16 | NUR ---
Problems reprioritized. Patient report given, questions answered & plan of care reviewed with Charlene BRIGGS.
[2023-01-28 07:23] LABS: MAGNESIUM 1.6 MG/DL (1.5-2.4); PHOSPHORUS 2.2 MG/DL (2.3-4.5)
[2023-01-28] MEDS: enoxaparin 40mg/0.4ml syringe SUBCUT SCH ×2 (07:25→21:16)
[2023-01-28] MEDS: oxybutynin 5mg tablet PO SCH (07:25)
[2023-01-28] MEDS: lisinopril 10 MG tablet PO SCH (07:25)
[2023-01-28] MEDS ORDERED: furosemide 40mg/4ml inj IV ONE (07:55)
--- NOTE | 2023-01-28 09:39 | NUR ---
Sanjuanita REYNOSO aware of pt's fever and need for Cardene gtt. and that pt. is not receiving his home HTN meds. Lisinopril ordered and given. Cardene gtt off since 0800. Pt. encouraged to use I.S. and flutter valve.
[2023-01-28] MEDS: Neutra Phos packet PO PRN ×2 (10:33→15:53)
[2023-01-28] MEDS: magnesium 2GM in 50ml NS 50 ML IV PRN (10:36)
--- NOTE | 2023-01-28 14:02 | NUR ---
RN notified Dr. Dixon of pt. being off Nicardipine since this am and receiving Lisinopril ordered by Lesley REYNOSO. RN asked about bowel care as pt. has not had a BM. Stated pt. is expected to have an ileus as his abd. was opened in surgery and to not add any bowel meds.
--- NOTE | 2023-01-28 18:15 | NUR ---
Patient in room ICU 2042. I have received report from Nevaeh BRIGGS and had the opportunity to ask questions and assume patient care, patient c/o incisional pain and medicated with morphine 4 mg IV as ordered with relief.
--- NOTE | 2023-01-28 18:30 | NUR ---
Report called to receiving nurse eBttina BRIGGS. Transferred via bed with home CPAP machine as only Belongings . Special Issues communicated to receiving nurse.
[2023-01-28] MEDS: insulin glargine (Lantus) pen - multi-dose SQ SCH (21:00)
[2023-01-28] MEDS: atorvastatin 10mg tablet PO SCH (21:15)
--- NOTE | 2023-01-28 21:34 | NUR ---
sent respiratory a page to help set up pt's BIPAP machine.
[2023-01-29] VITALS (8 sets, daily range): BP systolic 142–185; BP diastolic 58–74
--- NOTE | 2023-01-29 00:09 | NUR ---
pt sleeping. Addendum: 01/29/23 at 0010 by Bettina Hansen RN Amended: Links added.
[2023-01-29] MEDS: morphine 4 MG/ML inj SYRINge IV PRN ×3 (03:06→17:08)
[2023-01-29] MEDS: acetaminophen 325mg tablet PO PRN ×3 (03:06→23:03)
--- NOTE | 2023-01-29 04:32 | NUR ---
pt sleeping IS not done. Addendum: 01/29/23 at 0432 by Bettina Hansen RN Amended: Links added.
--- NOTE | 2023-01-29 04:46 | NUR ---
pt has gotten tylenol x2 this shift for fever, and morphine once for pain in his wrists. both medications have been effective.
--- NOTE | 2023-01-29 06:30 | NUR ---
Patient in room PCU 3020. I have received report from CHESTER Sanchez and had the opportunity to ask questions and assume patient care.
--- NOTE | 2023-01-29 06:37 | NUR ---
Problems reprioritized. Patient report given, questions answered & plan of care reviewed with Sara BRIGGS. Stable at shift change.
[2023-01-29 06:52] LABS: BASOPHILS % (AUTO) 0.3 % (0-1); EOSINOPHILS # (AUTO) 0.3 X10'3 (0-0.9); EOSINOPHILS % (AUTO) 2.7 % (0-6); HEMATOCRIT 29.5 % (42.0-52.0); HEMOGLOBIN 9.6 g/dl (14.0-17.9); LYMPHOCYTES # (AUTO) 0.8 X10'3 (1.1-4.8); LYMPHOCYTES % (AUTO) 7.3 % (21-51); MEAN CORPUSCULAR HEMOGLOBIN 26.2 PG (27.0-31.0); MEAN CORPUSCULAR HGB CONC 32.5 g/dL (33.0-36.5); MEAN CORPUSCULAR VOLUME 80.6 FL (78-98); MEAN PLATELET VOLUME 9.5 FL (7.4-10.4); MONOCYTES # (AUTO) 1.3 X10'3 (0-0.9); MONOCYTES % (AUTO) 11.4 % (2-12); NEUTROPHILS # (AUTO) 8.6 X10'3 (1.8-7.7); NEUTROPHILS % (AUTO) 78.3 % (42-75); PLATELET COUNT 180 X10'3 (140-440); RED BLOOD COUNT 3.66 X10'6 (4.70-6.10)
[2023-01-29 07:16] LABS: ALBUMIN 2.8 G/DL (3.4-5.0); ANION GAP 10 (8-16); BLOOD UREA NITROGEN 11 MG/DL (7-18); BUN/CREATININE RATIO 11.3 (10.0-20.0); CALCIUM 8.8 MG/DL (8.5-10.1); CHLORIDE 101 MMOL/L (99-107); CREATININE 0.97 MG/DL (0.60-1.10); GLUCOSE 147 MG/DL (70-104); MAGNESIUM 1.6 MG/DL (1.5-2.4); PHOSPHORUS 3.1 MG/DL (2.3-4.5); POTASSIUM 3.6 MMOL/L (3.5-5.1); SODIUM 137 MMOL/L (135-145); TOTAL CARBON DIOXIDE 25.6 MMOL/L (24-32); eGFR 75 ML/MIN
[2023-01-29] MEDS: oxybutynin 5mg tablet PO SCH (08:47)
[2023-01-29] MEDS: clopidogrel 75mg tablet PO SCH (08:47)
[2023-01-29] MEDS: lisinopril 10 MG tablet PO SCH (08:48)
[2023-01-29] MEDS: enoxaparin 40mg/0.4ml syringe SUBCUT SCH ×2 (08:49→19:58)
[2023-01-29] MEDS ORDERED: traMADol 50MG tablet PO PRN (11:35)
[2023-01-29] MEDS: GUANFACINE HCL 1 MG PO SCH (12:00)
[2023-01-29] MEDS: ascorbic acid 500mg tablet PO SCH (13:02)
[2023-01-29] MEDS: folic acid 1mg tablet PO SCH (13:02)
[2023-01-29] MEDS: atorvastatin 20mg tablet PO SCH (13:02)
[2023-01-29] MEDS: pramipexole 0.25mg tablet PO SCH (19:58)
[2023-01-29] MEDS: morphine 2 MG/ML inj. syringe IV PRN (20:00)
[2023-01-29] MEDS: insulin glargine (Lantus) pen - multi-dose SQ SCH (21:00)
--- NOTE | 2023-01-29 23:15 | NUR ---
paged respiratory PCU 6010. Lesley Conroy Please help pt with BiPAP machine he wants to go to sleep and when I try to help its not sitting right. Thank you.
[2023-01-30] VITALS (7 sets, daily range): BP systolic 118–181; BP diastolic 56–88
--- NOTE | 2023-01-30 00:05 | NUR ---
Pt sleeping, no IS Addendum: 01/30/23 at 0007 by Bettina Hansen RN Amended: Links added.
--- NOTE | 2023-01-30 00:06 | NUR ---
coatings inspector VS done at 1800,2200, and 0200. Addendum: 01/30/23 at 0007 by Bettina Hansen RN Amended: Links added.
--- NOTE | 2023-01-30 00:41 | NUR ---
IS not used as pt is sleeping. Addendum: 01/30/23 at 0042 by Bettina Hansen RN Amended: Links added.
[2023-01-30] MEDS: ondansetron/PF 4mg/2ml inj IV PRN ×2 (04:32→13:37)
[2023-01-30] MEDS: morphine 4 MG/ML inj SYRINge IV PRN (04:33)
--- NOTE | 2023-01-30 05:32 | NUR ---
spoke with Dr. Hall regarding pt BP of 181/88. Dr. Hall gave a new order of 15mg Hydralazine Q6hr PRN via IV. Order was read back to .
[2023-01-30] MEDS: hydrALAZINE 20mg/ml inj. IV PRN ×2 (05:50→15:07)
--- NOTE | 2023-01-30 06:27 | NUR ---
Problems reprioritized. Patient report given, questions answered & plan of care reviewed with Sara BRIGGS. Pt stable at shift change.
[2023-01-30] MEDS: atorvastatin 20mg tablet PO SCH (08:46)
[2023-01-30] MEDS: oxybutynin 5mg tablet PO SCH (08:46)
[2023-01-30] MEDS: ascorbic acid 500mg tablet PO SCH (08:46)
[2023-01-30] MEDS: clopidogrel 75mg tablet PO SCH (08:46)
[2023-01-30] MEDS: lisinopril 10 MG tablet PO SCH (08:47)
[2023-01-30] MEDS: folic acid 1mg tablet PO SCH (08:47)
[2023-01-30] MEDS: cholecalciferol (vitamin D3) 1,000 unit (25mcg) tablet PO SCH (08:48)
[2023-01-30] MEDS: enoxaparin 40mg/0.4ml syringe SUBCUT SCH ×2 (08:49→19:27)
[2023-01-30] MEDS ORDERED: oxyCODONE IR 5mg (immed. release) tablet PO PRN (09:55)
[2023-01-30] MEDS: morphine 2 MG/ML inj. syringe IV PRN (10:32)
[2023-01-30] MEDS: GUANFACINE HCL 1 MG PO SCH (11:10)
--- NOTE | 2023-01-30 11:48 | NUR ---
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 Pt initially on a clear liquid diet which was advanced to full liquids 01/29 and regular today. Lunch to be the first meal on regular diet. Regardless of PO intake pt unable to meet estimated nutrient needs while on a liquid diet. No documented BM since admit though pt passing gas per PA note today. Pt with no routine bowel care available though with PRN bowel care, not given per EMR. Will continue to follow closely and make recommendations as appropriate pending trends in PO intake with diet advancement. Recommendations: 1) Continue regular diet; change to heart healthy diet if pt with adequate PO intake 2) Monitor need for ONS/additional protein 3) Routine bowel care 4) Daily scaled weights per rx Addendum: 01/30/23 at [address] Amended: Links added.
[2023-01-30 18:07] LABS: ALBUMIN 2.7 G/DL (3.4-5.0); ANION GAP 10 (8-16); BLOOD UREA NITROGEN 10 MG/DL (7-18); BUN/CREATININE RATIO 10.6 (10.0-20.0); CALCIUM 8.7 MG/DL (8.5-10.1); CHLORIDE 98 MMOL/L (99-107); CREATININE 0.94 MG/DL (0.60-1.10); GLUCOSE 175 MG/DL (70-104); POTASSIUM 3.5 MMOL/L (3.5-5.1); SODIUM 135 MMOL/L (135-145); TOTAL CARBON DIOXIDE 26.7 MMOL/L (24-32); eGFR 78 ML/MIN
[2023-01-30] MEDS: pramipexole 0.25mg tablet PO SCH (21:41)
[2023-01-30] MEDS: insulin glargine (Lantus) pen - multi-dose SQ SCH (21:49)
[2023-01-31 02:00] VITALS: BP 151/60
[2023-01-31 06:00] VITALS: BP 103/67
[2023-01-31 06:43] LABS: BASOPHILS % (AUTO) 0.2 % (0-1); EOSINOPHILS # (AUTO) 0.4 X10'3 (0-0.9); EOSINOPHILS % (AUTO) 3.9 % (0-6); HEMOGLOBIN 9.4 g/dl (14.0-17.9); LYMPHOCYTES # (AUTO) 0.8 X10'3 (1.1-4.8); MEAN CORPUSCULAR HEMOGLOBIN 26.2 PG (27.0-31.0); MEAN CORPUSCULAR HGB CONC 32.6 g/dL (33.0-36.5); MEAN CORPUSCULAR VOLUME 80.4 FL (78-98); MONOCYTES # (AUTO) 1.1 X10'3 (0-0.9); MONOCYTES % (AUTO) 9.7 % (2-12); NEUTROPHILS # (AUTO) 8.7 X10'3 (1.8-7.7); NEUTROPHILS % (AUTO) 79.2 % (42-75); PLATELET COUNT 254 X10'3 (140-440); RED CELL DISTRIBUTION WIDTH 19.2 % (11.5-14.5)
[2023-01-31 06:48] LABS: ALBUMIN 2.5 G/DL (3.4-5.0); ANION GAP 9 (8-16); BLOOD UREA NITROGEN 12 MG/DL (7-18); BUN/CREATININE RATIO 12.5 (10.0-20.0); CALCIUM 9.2 MG/DL (8.5-10.1); CHLORIDE 101 MMOL/L (99-107); CREATININE 0.96 MG/DL (0.60-1.10); GLUCOSE 163 MG/DL (70-104); POTASSIUM 3.7 MMOL/L (3.5-5.1); SODIUM 138 MMOL/L (135-145); TOTAL CARBON DIOXIDE 28.3 MMOL/L (24-32); eGFR 76 ML/MIN
--- NOTE | 2023-01-31 06:48 | NUR ---
Problems reprioritized. Patient report given, questions answered & plan of care reviewed with Darwin BRIGGS.
[2023-01-31] MEDS: GUANFACINE HCL 1 MG PO SCH ×2 (08:00→11:53)
[2023-01-31] MEDS: atorvastatin 20mg tablet PO SCH (08:42)
[2023-01-31] MEDS: clopidogrel 75mg tablet PO SCH (08:42)
[2023-01-31] MEDS: oxybutynin 5mg tablet PO SCH (08:42)
[2023-01-31] MEDS: ascorbic acid 500mg tablet PO SCH (08:42)
[2023-01-31] MEDS: cholecalciferol (vitamin D3) 1,000 unit (25mcg) tablet PO SCH (08:42)
[2023-01-31] MEDS: folic acid 1mg tablet PO SCH (08:42)
[2023-01-31] MEDS: lisinopril 20mg tablet PO SCH (08:43)
[2023-01-31] MEDS: enoxaparin 40mg/0.4ml syringe SUBCUT SCH ×2 (08:45→20:45)
[2023-01-31] MEDS ORDERED: lactulose 20gm/30ml cup PO ONE (10:25)
[2023-01-31] MEDS ORDERED: traMADol 50MG tablet PO PRN (10:25)
[2023-01-31] MEDS ORDERED: bisacodyl 10mg suppository rectal RC STA (10:27)
[2023-01-31 11:00] VITALS: BP 158/74
[2023-01-31] MEDS: lactose-reduced food (Ensure High Protein) 237ml bottle PO SCH ×2 (13:00→17:44)
[2023-01-31 15:00] VITALS: BP 117/61
[2023-01-31 18:00] VITALS: BP 138/80
--- NOTE | 2023-01-31 18:35 | NUR ---
Patient in room PCU 3020. I have received report from CHESTER DE ANDA and had the opportunity to ask questions and assume patient care.
[2023-01-31] MEDS: pramipexole 0.25mg tablet PO SCH (20:45)
[2023-01-31] MEDS: insulin glargine (Lantus) pen - multi-dose SQ SCH (21:10)
[2023-01-31 22:00] VITALS: BP 117/53
[2023-01-31] MEDS: ondansetron/PF 4mg/2ml inj IV PRN (23:11)
[2023-02-01 02:00] VITALS: BP 133/83
--- NOTE | 2023-02-01 05:30 | NUR ---
Nicholson cath pulled out , pt not void yet but no bladder distention noted.
[2023-02-01 06:00] VITALS: BP 116/68
--- NOTE | 2023-02-01 06:10 | NUR ---
Problems reprioritized. Patient report given, questions answered & plan of care reviewed with CHESTER SEGOVIA.
[2023-02-01 07:36] LABS: BASOPHILS % (AUTO) 0.2 % (0-1); EOSINOPHILS # (AUTO) 0.3 X10'3 (0-0.9); EOSINOPHILS % (AUTO) 2.8 % (0-6); HEMATOCRIT 29.7 % (42.0-52.0); HEMOGLOBIN 9.5 g/dl (14.0-17.9); LYMPHOCYTES # (AUTO) 0.8 X10'3 (1.1-4.8); LYMPHOCYTES % (AUTO) 8.5 % (21-51); MEAN CORPUSCULAR HGB CONC 32.1 g/dL (33.0-36.5); MEAN PLATELET VOLUME 8.9 FL (7.4-10.4); MONOCYTES % (AUTO) 11.4 % (2-12); NEUTROPHILS % (AUTO) 77.1 % (42-75); PLATELET COUNT 354 X10'3 (140-440); RED BLOOD COUNT 3.66 X10'6 (4.70-6.10); RED CELL DISTRIBUTION WIDTH 18.8 % (11.5-14.5); WHITE BLOOD COUNT 9.1 X10'3 (4.5-11.0)
[2023-02-01] MEDS: GUANFACINE HCL 1 MG PO SCH (08:00)
[2023-02-01 08:04] LABS: ALBUMIN 2.7 G/DL (3.4-5.0); ANION GAP 10 (8-16); BLOOD UREA NITROGEN 20 MG/DL (7-18); BUN/CREATININE RATIO 19.6 (10.0-20.0); CALCIUM 9.3 MG/DL (8.5-10.1); CHLORIDE 98 MMOL/L (99-107); CREATININE 1.02 MG/DL (0.60-1.10); GLUCOSE 153 MG/DL (70-104); POTASSIUM 3.3 MMOL/L (3.5-5.1); SODIUM 137 MMOL/L (135-145); TOTAL CARBON DIOXIDE 28.6 MMOL/L (24-32); eGFR 71 ML/MIN
[2023-02-01 08:11] LABS: ANISOCYTOSIS 2+; ELLIPTOCYTES FEW; MICROCYTOSIS 1+; PLATELET ESTIMATE NORMAL
[2023-02-01] MEDS: enoxaparin 40mg/0.4ml syringe SUBCUT SCH (09:01)
[2023-02-01] MEDS: ascorbic acid 500mg tablet PO SCH (09:02)
[2023-02-01] MEDS: cholecalciferol (vitamin D3) 1,000 unit (25mcg) tablet PO SCH (09:02)
[2023-02-01] MEDS: folic acid 1mg tablet PO SCH (09:02)
[2023-02-01] MEDS: atorvastatin 20mg tablet PO SCH (09:02)
[2023-02-01] MEDS: oxybutynin 5mg tablet PO SCH (09:02)
[2023-02-01] MEDS: clopidogrel 75mg tablet PO SCH (09:02)
[2023-02-01] MEDS: lisinopril 20mg tablet PO SCH (09:03)
[2023-02-01 11:00] VITALS: BP 118/55
[2023-02-01] MEDS ORDERED: OXYC-658 PO (11:07)
[2023-02-01] MEDS ORDERED: haloperidol lactate 5mg/ml inj IM ONE (13:15)
--- NOTE | 2023-02-01 16:00 | NUR ---
discharge: has gathered belongings including C-pap, Will meet Pt. at rehab facility. Transport via WC van. Transferred with 2 person assist. packet is with transport. O2 for transport 2L NC.
== END 2023-02-01 16:44 | DRG 271 ==
LOC: PAS IN 08:59 → ICU 2S 15:17 → PCU 3S 01-28 19:08
PROVIDERS: ADMIT Thoracic Surgery (Cardiothoracic Vascular Surgery); ATTEND Thoracic Surgery (Cardiothoracic Vascular Surgery)
PROC: 30233N1 Transfusion of Nonautologous Red Blood Cells into Peripheral Vein, Percutaneous Approach (ICD-10-PCS; 2023-01-25)
PROC: 041C0JH Bypass Right Common Iliac Artery to Right Femoral Artery with Synthetic Substitute, Open Approach (ICD-10-PCS; principal; 2023-01-25 13:38)
PROC: 5A09357 Assistance with Respiratory Ventilation, Less than 24 Consecutive Hours, Continuous Positive Airway Pressure (ICD-10-PCS; 2023-01-26)
PROC: 5A09357 Assistance with Respiratory Ventilation, Less than 24 Consecutive Hours, Continuous Positive Airway Pressure (ICD-10-PCS; 2023-01-27)
PROC: 5A09357 Assistance with Respiratory Ventilation, Less than 24 Consecutive Hours, Continuous Positive Airway Pressure (ICD-10-PCS; 2023-01-29)
PROC: 5A09357 Assistance with Respiratory Ventilation, Less than 24 Consecutive Hours, Continuous Positive Airway Pressure (ICD-10-PCS; 2023-01-30)
PROC: 5A09357 Assistance with Respiratory Ventilation, Less than 24 Consecutive Hours, Continuous Positive Airway Pressure (ICD-10-PCS; 2023-01-31)
DX: I70.221 Atherosclerosis of native arteries of extremities with rest pain, right leg (principal); D62 Acute posthemorrhagic anemia; I70.0 Atherosclerosis of aorta; I10 Essential (primary) hypertension; Z79.02 Long term (current) use of antithrombotics/antiplatelets
CPT/HCPCS: 36415; 36430; 36600; 71045; 71046; 80048; 80053; 81001; 82330; 82435; 82803; 82947; 82948; 83036; 83735; 84100; 84132; 84295; 84478; 85008; 85018; 85025; 85610; 85730; 86885; 86900; 86901; 86920; 87077; 87081; 87088; 87186; 88300; 93005; 94002; 94003; 94010; 94760; 94799; 97110; 97161; 97530; 97535; A4615; A4618; A6212; A6213; A6258; A6449; A7000; C1751; C1758; C1768; C2628; G0378; J0171; J0360; J0690; J1265; J1644; J1650; J1815; J1940; J2250; J2270; J2370; J2405; J2704; J2720; J3010; J3475; J3480; J3490; J7030; J7040; J7050; J7120; P9016; P9045

== ENCOUNTER 2023-02-27 08:38 | Outpatient (CLI) | payer MEDICARE, BC ==
[~2023-02-27 08:38] MED LIST changes: +OXYC-658 PO; -cefazolin 2gm/D5W 100mL 100 ML IV ONE; -famotidine 20mg tablet PO ONE; -metoprolol tartrate 12.5mg (1/2 tablet) PO ONE; -mupirocin 2% nasal ointment 1gm UD NS ONE; -nitroPRUSSIDE (NIPRIDE) (200MCG/ML) 100ML Drip IV SCH; -phenylephrine inj 50 MG in normal saline 250ml IV solN IV SCH; -ringers solution, lacted 1,000 ML IV SCH
== END 2023-02-27 23:59 | disposition home or self-care (01) ==
LOC: RAD 08:38
PROVIDERS: ATTEND Thoracic Surgery (Cardiothoracic Vascular Surgery)
DX: K59.00 Constipation, unspecified (principal); R11.2 Nausea with vomiting, unspecified
CPT/HCPCS: 74018

== ENCOUNTER 2023-03-01 11:38 | Emergency (ER) | payer MEDICARE, BC ==
[~2023-03-01] VITALS: Ht 167.6 cm; Wt 73.6 kg
[2023-03-01 12:05] LABS: BASOPHILS % (AUTO) 0.2 % (0-1); EOSINOPHILS # (AUTO) 0.1 X10'3 (0-0.9); HEMATOCRIT 28.8 % (42.0-52.0); HEMOGLOBIN 9.3 g/dl (14.0-17.9); LYMPHOCYTES # (AUTO) 0.7 X10'3 (1.1-4.8); LYMPHOCYTES % (AUTO) 6.2 % (21-51); MEAN CORPUSCULAR HEMOGLOBIN 26.6 PG (27.0-31.0); MEAN CORPUSCULAR HGB CONC 32.3 g/dL (33.0-36.5); MEAN CORPUSCULAR VOLUME 82.2 FL (78-98); MEAN PLATELET VOLUME 9.7 FL (7.4-10.4); MONOCYTES # (AUTO) 0.7 X10'3 (0-0.9); MONOCYTES % (AUTO) 6.1 % (2-12); NEUTROPHILS # (AUTO) 10.2 X10'3 (1.8-7.7); NEUTROPHILS % (AUTO) 86.5 % (42-75); PLATELET COUNT 231 X10'3 (140-440); RED BLOOD COUNT 3.51 X10'6 (4.70-6.10); RED CELL DISTRIBUTION WIDTH 18.9 % (11.5-14.5); WHITE BLOOD COUNT 11.8 X10'3 (4.5-11.0)
[2023-03-01 12:26] LABS: ALANINE AMINOTRANSFERASE 18 U/L (12-78); ALBUMIN 3.2 G/DL (3.4-5.0); ALBUMIN/GLOBULIN RATIO 0.9 (1.1-1.5); ALKALINE PHOSPHATASE 105 IU/L (46-116); ANION GAP 6 (8-16); ASPARTATE AMINO TRANSFERASE 16 U/L (10-37); BILIRUBIN,TOTAL 0.5 MG/DL (0.1-1.0); BLOOD UREA NITROGEN 14 MG/DL (7-18); CALCIUM 9.4 MG/DL (8.5-10.1); CHLORIDE 100 MMOL/L (99-107); GLUCOSE 178 MG/DL (70-104); SODIUM 136 MMOL/L (135-145); TOTAL CARBON DIOXIDE 30.1 MMOL/L (24-32); TOTAL PROTEIN 6.8 G/DL (6.4-8.2); eCRCL 55 ML/MIN; eGFR 72 ML/MIN
[2023-03-01 12:33] LABS: PRO BRAIN NATRIURETIC PEPTIDE 984 PG/ML (0-450)
[2023-03-01 12:47] LABS: PLATELET ESTIMATE NORMAL
[2023-03-01 12:48] LABS: ANISOCYTOSIS 2+; ELLIPTOCYTES FEW; HYPOCHROMASIA 1+; SCHISTOCYTES FEW; TEAR DROP CELLS FEW
[2023-03-01 14:05] VITALS: BP 105/49; PULSE 45; RESP 15; O2SAT 96
[2023-03-01 17:31] LABS: BILIRUBIN,URINE NEGATIVE (Neg); CLARITY,URINE TURBID (Clear); COLOR,URINE YELLOW (Yellow); GLUCOSE, URINE NEGATIVE (Neg); KETONES,URINE NEGATIVE (Neg); LEUKOCYTE ESTERASE ,URINE LARGE (Neg); NITRITES, URINE POSITIVE (Neg); OCCULT BLOOD,URINE TRACE-INTACT (Neg); PROTEIN,URINE 30 mg/dl (Neg); UROBILINOGEN,URINE 0.2 E.U/dL (0.2-1.0)
[2023-03-01 17:34] LABS: UA COLLECTION TYPE CLN CATCH MIDSTREAM
[2023-03-01 17:42] LABS: BACTERIA,URINE 3+ /HPF (Neg); SQUAMOUS EPITHELIAL CELL,UR NONE SEEN /LPF (FEW); WBC,URINE TNTC /HPF (0-4)
[2023-03-01 17:43] LABS: MUCUS STRANDS NONE SEEN /LPF (Neg); TRANSITIONAL EPI CELLS,URINE FEW /HPF; WBC CLUMPS,URINE MANY /HPF (NEGATIVE)
[2023-03-01] MEDS ORDERED: cephalexin 250mg capsule PO ONE (17:45)
[2023-03-01] MEDS ORDERED: CEPH-585 PO ×2 (17:48)
== END 2023-03-01 17:58 | disposition home or self-care (01) ==
LOC: ER 11:39
DX: R00.1 Bradycardia, unspecified (principal); N39.0 Urinary tract infection, site not specified; I50.9 Heart failure, unspecified; E11.9 Type 2 diabetes mellitus without complications; Z79.2 Long term (current) use of antibiotics; Z88.0 Allergy status to penicillin; Z88.5 Allergy status to narcotic agent; Z79.899 Other long term (current) drug therapy
CPT/HCPCS: 36415; 71045; 80053; 81001; 83880; 84145; 84484; 85008; 85025; 87077; 87088; 87186; 93005; 99285

== ENCOUNTER 2023-03-04 07:45 | Day surgery (SDC) | payer MEDICARE, BC ==
[2023-03-04] VITALS (7 sets, daily range): BP systolic 109–153; BP diastolic 47–74; PULSE 42–76; RESP 14–16; TEMP 98; O2SAT 93–99
[~2023-03-04] VITALS: Ht 167.6 cm; Wt 73.5 kg
[~2023-03-04 07:45] MED LIST changes: +CEPH-585 PO
[2023-03-04] MEDS ORDERED: vancomycin 1,500 MG in NS 300ml IV soln IV ONE (08:03)
[2023-03-04] MEDS ORDERED: normal saline 1000ml 1,000 ML IV SCH (08:05)
[2023-03-04] MEDS ORDERED: clindamycin-Cleocin 900mg/D5W 50 ML IV ONE (08:20)
[2023-03-04 09:08] LABS: BASOPHILS % (AUTO) 0.4 % (0-1); EOSINOPHILS # (AUTO) 0.3 X10'3 (0-0.9); EOSINOPHILS % (AUTO) 5.1 % (0-6); HEMATOCRIT 26.7 % (42.0-52.0); HEMOGLOBIN 8.7 g/dl (14.0-17.9); LYMPHOCYTES # (AUTO) 0.7 X10'3 (1.1-4.8); LYMPHOCYTES % (AUTO) 11.4 % (21-51); MEAN CORPUSCULAR HEMOGLOBIN 26.9 PG (27.0-31.0); MEAN CORPUSCULAR HGB CONC 32.6 g/dL (33.0-36.5); MEAN CORPUSCULAR VOLUME 82.6 FL (78-98); MEAN PLATELET VOLUME 9.2 FL (7.4-10.4); MONOCYTES # (AUTO) 0.7 X10'3 (0-0.9); MONOCYTES % (AUTO) 11.9 % (2-12); NEUTROPHILS # (AUTO) 4.2 X10'3 (1.8-7.7); NEUTROPHILS % (AUTO) 71.2 % (42-75); PLATELET COUNT 239 X10'3 (140-440); RED BLOOD COUNT 3.23 X10'6 (4.70-6.10); WHITE BLOOD COUNT 5.9 X10'3 (4.5-11.0)
[2023-03-04 09:16] LABS: ANION GAP 8 (8-16); BLOOD UREA NITROGEN 19 MG/DL (7-18); BUN/CREATININE RATIO 22.1 (10.0-20.0); CHLORIDE 101 MMOL/L (99-107); CREATININE 0.86 MG/DL (0.60-1.10); GLUCOSE 133 MG/DL (70-104); MAGNESIUM 1.6 MG/DL (1.5-2.4); POTASSIUM 3.9 MMOL/L (3.5-5.1); PROTHROMBIN TIME 10.7 SECONDS (9.0-12.0); SODIUM 135 MMOL/L (135-145); eCRCL 64 ML/MIN; eGFR 86 ML/MIN
[2023-03-04] MEDS ORDERED: ATOR-2 PO (09:19)
[2023-03-04] MEDS ORDERED: ASPI-1264 PO (09:19)
[2023-03-04] MEDS ORDERED: fentaNYL/PF 50MCG/1 ML 2ML syringe ONE (10:18)
[2023-03-04] MEDS ORDERED: LIDOCAINE 2%/EPI 1:100,000 inj. Multi-dose 20 ML VIAL ONE (10:18)
[2023-03-04] MEDS ORDERED: vancomycin 1,000mg inj ONE (10:18)
[2023-03-04] MEDS ORDERED: midazolam 1 mg/ML 2ml injection ONE ×3 (10:18→11:05)
[2023-03-04 10:46] LABS: ANISOCYTOSIS 2+; HYPOCHROMASIA 1+; PLATELET ESTIMATE NORMAL
[2023-03-04 10:47] LABS: BURR CELLS 1+; ELLIPTOCYTES FEW; SCHISTOCYTES FEW; TEAR DROP CELLS FEW
== END 2023-03-04 14:30 | disposition home or self-care (01) ==
LOC: SSTAY O 07:45
PROVIDERS: ATTEND Internal Medicine Cardiovascular Disease
DX: I49.5 Sick sinus syndrome (principal); I10 Essential (primary) hypertension; I25.10 Atherosclerotic heart disease of native coronary artery without angina pectoris; I73.9 Peripheral vascular disease, unspecified; I25.2 Old myocardial infarction; I35.0 Nonrheumatic aortic (valve) stenosis; E11.9 Type 2 diabetes mellitus without complications; Z95.5 Presence of coronary angioplasty implant and graft; Z95.3 Presence of xenogenic heart valve; Z95.1 Presence of aortocoronary bypass graft; Z79.01 Long term (current) use of anticoagulants; Z79.82 Long term (current) use of aspirin; Z79.84 Long term (current) use of oral hypoglycemic drugs; Z79.899 Other long term (current) drug therapy; Z90.49 Acquired absence of other specified parts of digestive tract; Z96.651 Presence of right artificial knee joint; Z98.890 Other specified postprocedural states; Z87.891 Personal history of nicotine dependence; Z88.0 Allergy status to penicillin; Z88.5 Allergy status to narcotic agent; Z88.8 Allergy status to other drugs, medicaments and biological substances; Z82.49 Family history of ischemic heart disease and other diseases of the circulatory system
CPT/HCPCS: 33208; 36415; 71045; 80048; 83735; 85025; 85610; 93005; 99152; 99153; C1785; C1898; J2250; J3010; J3370; J7030; 85008; A4615

== ENCOUNTER 2023-03-22 11:48 | Inpatient (IN) | payer MEDICARE, BC ==
[~2023-03-22] VITALS: Ht 167.6 cm; Wt 69.9 kg
[~2023-03-22 11:48] MED LIST changes: +ASPI-1264 PO; +ATOR-2 PO; -CEPH-585 PO; -OXYC-658 PO; -PANT40TA54 PO; -ROSU40TA PO
[2023-03-22 12:49] LABS: ALANINE AMINOTRANSFERASE 42 U/L (12-78); ALBUMIN 3.6 G/DL (3.4-5.0); ALBUMIN/GLOBULIN RATIO 0.9 (1.1-1.5); ALKALINE PHOSPHATASE 121 IU/L (46-116); ANION GAP 13 (8-16); ASPARTATE AMINO TRANSFERASE 32 U/L (10-37); BILIRUBIN,TOTAL 0.7 MG/DL (0.1-1.0); BLOOD UREA NITROGEN 26 MG/DL (7-18); BUN/CREATININE RATIO 27.1 (10.0-20.0); CALCIUM 9.6 MG/DL (8.5-10.1); CHLORIDE 97 MMOL/L (99-107); CREATININE 0.96 MG/DL (0.60-1.10); GLUCOSE 188 MG/DL (70-104); SODIUM 134 MMOL/L (135-145); TOTAL CARBON DIOXIDE 24.2 MMOL/L (24-32); TOTAL PROTEIN 7.7 G/DL (6.4-8.2); eCRCL 57 ML/MIN; eGFR 76 ML/MIN
[2023-03-22 12:59] LABS: PRO BRAIN NATRIURETIC PEPTIDE 5609 PG/ML (0-450)
[2023-03-22 13:04] LABS: POTASSIUM 3.7 MMOL/L (3.5-5.1)
--- NOTE | 2023-03-22 13:14 | NUR ---
PT TROP [id number]. RN NOTIFIED DR MONAE.
[2023-03-22] MEDS ORDERED: heparin 25,000 UNIT/250ml bag 250 ML IV PRN ×2 (13:55→14:25)
[2023-03-22] MEDS ORDERED: aspirin 81mg tab.chew PO ONE (13:55)
[2023-03-22] MEDS ORDERED: heparin 10,000 units/1 ML INJ IV ONE (13:55)
[2023-03-22 14:00] LABS: BASOPHILS # (AUTO) 0.1 X10'3 (0-0.2); BASOPHILS % (AUTO) 0.5 % (0-1); EOSINOPHILS # (AUTO) 0.1 X10'3 (0-0.9); EOSINOPHILS % (AUTO) 1.1 % (0-6); HEMATOCRIT 33.3 % (42.0-52.0); LYMPHOCYTES # (AUTO) 1.3 X10'3 (1.1-4.8); LYMPHOCYTES % (AUTO) 12.1 % (21-51); MEAN CORPUSCULAR HEMOGLOBIN 26.1 PG (27.0-31.0); MEAN CORPUSCULAR HGB CONC 33.1 g/dL (33.0-36.5); MEAN CORPUSCULAR VOLUME 78.9 FL (78-98); MEAN PLATELET VOLUME 8.8 FL (7.4-10.4); MONOCYTES # (AUTO) 1.1 X10'3 (0-0.9); MONOCYTES % (AUTO) 9.6 % (2-12); NEUTROPHILS # (AUTO) 8.5 X10'3 (1.8-7.7); NEUTROPHILS % (AUTO) 76.7 % (42-75); PLATELET COUNT 461 X10'3 (140-440); RED BLOOD COUNT 4.22 X10'6 (4.70-6.10); RED CELL DISTRIBUTION WIDTH 17.6 % (11.5-14.5); WHITE BLOOD COUNT 11.1 X10'3 (4.5-11.0)
[2023-03-22 14:09] LABS: D-DIMER 2.38 MG/L FEU (0-0.50)
--- NOTE | 2023-03-22 14:13 | NUR ---
RN UNABLE TO PULL HEPARIN DRIP FROM [facility]. RN WILL CALL PHARMACY.
[2023-03-22 14:21] LABS: APTT 28 SECONDS (22-32); PROTHROMBIN TIME 10.8 SECONDS (9.0-12.0)
--- NOTE | 2023-03-22 14:21 | NUR ---
RN NOTIFIED PHARMACY THAT HEPARIN DRIP IS NOT SHOWING UP IN [facility]. THEY WILL CANCEL AND REENTER ORDER.
[2023-03-22] MEDS ORDERED: SPIR25TA5 PO (14:57)
[2023-03-22] MEDS ORDERED: FOLI1TAB27 PO (14:57)
[2023-03-22] MEDS ORDERED: CEPH250C PO (14:57)
[2023-03-22] MEDS ORDERED: LISI20TA28 PO (14:57)
[2023-03-22] MEDS ORDERED: PANT40TA54 PO (14:57)
[2023-03-22] MEDS ORDERED: ATOR40TA72 PO (14:57)
[2023-03-22] MEDS ORDERED: CLOP75TA34 PO (14:57)
[2023-03-22] MEDS ORDERED: OXYB5TAB16 PO (14:57)
[2023-03-22] MEDS ORDERED: DOXY100T2 PO (14:57)
[2023-03-22] MEDS ORDERED: SEMA0.258 SQ (14:57)
[2023-03-22] MEDS ORDERED: ASPI-1397 PO (14:57)
[2023-03-22] MEDS ORDERED: FURO40TA4 PO (14:57)
[2023-03-22] MEDS ORDERED: EMPA10TA PO (14:57)
[2023-03-22] MEDS ORDERED: METF-900 PO (14:59)
[2023-03-22] MEDS ORDERED: PRAM0.5T12 PO (14:59)
[2023-03-22] MEDS ORDERED: GUAN1TAB28 PO (14:59)
[2023-03-22] MEDS ORDERED: MESSAGE TO PHARMACY PO ONE (15:00)
[2023-03-22] MEDS ORDERED: DEXTROSE 15 GM of carb/4 tabs (each vial/BOTTLE has 4 tablets) PO PRN ×2 (15:00)
[2023-03-22] MEDS ORDERED: acetaminophen 325mg tablet PO PRN (15:00)
[2023-03-22] MEDS ORDERED: magnesium hydroxide 30ml (MOM) UD suspension PO PRN (15:00)
[2023-03-22] MEDS ORDERED: glucagon, human recombinant 1mg kit SUBCUT PRN (15:00)
[2023-03-22] MEDS ORDERED: potassium Cl 20 mEq SR tablet PO PRN ×2 (15:00)
[2023-03-22] MEDS ORDERED: potassium Cl 40MEQ/1/2NS 520ml 520 ML IV PRN (15:00)
[2023-03-22] MEDS ORDERED: dextrose 50%-water 50ml dispensing syringe IV PRN ×2 (15:00)
[2023-03-22] MEDS ORDERED: magnesium 4gm in 100ml NS 100 ML IV PRN (15:00)
[2023-03-22] MEDS ORDERED: ondansetron/PF 4mg/2ml inj IV PRN (15:00)
[2023-03-22] MEDS ORDERED: magnesium 2GM in 50ml NS 50 ML IV PRN (15:00)
[2023-03-22] MEDS ORDERED: insulin Lispro (HumaLOG) vial - multi-dose SQ SCH (15:00)
[2023-03-22] MEDS ORDERED: magnesium Cl slow-release 64mg tablet PO PRN (15:00)
[2023-03-22] MEDS ORDERED: OMEG-5 PO (15:01)
[2023-03-22] MEDS ORDERED: ASCO-139 PO (15:01)
[2023-03-22] MEDS ORDERED: DOCU100C40 PO (15:01)
[2023-03-22] MEDS ORDERED: CHOL10006 PO (15:02)
[2023-03-22] MEDS ORDERED: TRAM50TA2 PO (15:04)
[2023-03-22] MEDS ORDERED: METO25CA PO (15:05)
[2023-03-22 15:34] LABS: HEMOGLOBIN A1C 6.1 % (4.5-6.2)
--- NOTE | 2023-03-22 17:43 | NUR ---
RN CK PT BG ACCUCK RESULT 102
[2023-03-22] MEDS: traMADol 50MG tablet PO PRN (18:16)
[2023-03-22] MEDS: K and/or MAG REPLACEMENT MC SCH (20:00)
--- NOTE | 2023-03-22 20:45 | NUR ---
PT PLACED ONTO A HOSPITAL BED.
[2023-03-22] MEDS ORDERED: oxybutynin 5mg tablet PO SCH (21:00)
[2023-03-22] MEDS ORDERED: pramipexole 0.25mg tablet PO SCH (21:00)
[2023-03-22] MEDS ORDERED: GUANFACINE HCL 1 MG PO SCH (21:00)
[2023-03-22] MEDS ORDERED: OMEGA-3/DHA/EPA/FISH OIL 1 EACH CAPSULE.DR PO SCH (21:00)
[2023-03-22] MEDS ORDERED: insulin glargine (Lantus) pen - multi-dose SQ SCH (21:00)
[2023-03-22 21:26] LABS: APTT 42 SECONDS (22-32)
[2023-03-22] MEDS: heparin 10,000 units/1 ML INJ IV PRN (22:01)
[2023-03-22] MEDS: lisinopril 20mg tablet PO SCH (22:04)
[2023-03-22] MEDS: docusate sod 100mg capsule PO SCH (22:04)
[2023-03-22] MEDS: oxyCODONE IR 5mg (immed. release) tablet PO PRN (22:05)
[2023-03-23] MEDS: oxyCODONE IR 5mg (immed. release) tablet PO PRN ×4 (03:31→16:00)
[2023-03-23 05:26] LABS: APTT 96 SECONDS (22-32)
[2023-03-23] MEDS ORDERED: pantoprazole 40mg Tablet.DR PO SCH (07:30)
[2023-03-23] MEDS: docusate sod 100mg capsule PO SCH (07:44)
[2023-03-23 07:56] LABS: BASOPHILS % (AUTO) 0.4 % (0-1); EOSINOPHILS # (AUTO) 0.3 X10'3 (0-0.9); EOSINOPHILS % (AUTO) 3.4 % (0-6); HEMATOCRIT 32.3 % (42.0-52.0); HEMOGLOBIN 10.8 g/dl (14.0-17.9); LYMPHOCYTES # (AUTO) 1.7 X10'3 (1.1-4.8); LYMPHOCYTES % (AUTO) 18.2 % (21-51); MEAN CORPUSCULAR HEMOGLOBIN 26.9 PG (27.0-31.0); MEAN CORPUSCULAR HGB CONC 33.4 g/dL (33.0-36.5); MEAN CORPUSCULAR VOLUME 80.5 FL (78-98); MEAN PLATELET VOLUME 8.8 FL (7.4-10.4); MONOCYTES # (AUTO) 0.7 X10'3 (0-0.9); MONOCYTES % (AUTO) 7.3 % (2-12); NEUTROPHILS # (AUTO) 6.6 X10'3 (1.8-7.7); NEUTROPHILS % (AUTO) 70.7 % (42-75); PLATELET COUNT 409 X10'3 (140-440); RED BLOOD COUNT 4.01 X10'6 (4.70-6.10); RED CELL DISTRIBUTION WIDTH 17.9 % (11.5-14.5); WHITE BLOOD COUNT 9.4 X10'3 (4.5-11.0)
--- NOTE | 2023-03-23 07:56 | NUR ---
Attempted to call for report, I was told the nurse was in the middle of giving meds and will call me back
[2023-03-23] MEDS ORDERED: folic acid 1mg tablet PO SCH (08:00)
[2023-03-23] MEDS ORDERED: metoprolol succinate 25mg (24-HOUR) SR. Tablet PO SCH (08:00)
[2023-03-23] MEDS ORDERED: ascorbic acid 500mg tablet PO SCH (08:00)
[2023-03-23] MEDS ORDERED: atorvastatin 20mg tablet PO SCH (08:00)
[2023-03-23] MEDS ORDERED: spironolactone 25 MG tablet PO SCH (08:00)
[2023-03-23] MEDS ORDERED: furosemide 40mg tablet PO SCH (08:00)
[2023-03-23] MEDS: lisinopril 20mg tablet PO SCH (08:00)
[2023-03-23] MEDS ORDERED: clopidogrel 75mg tablet PO SCH (08:00)
[2023-03-23] MEDS ORDERED: cholecalciferol (vitamin D3) 1,000 unit (25mcg) tablet PO SCH (08:00)
[2023-03-23] MEDS: K and/or MAG REPLACEMENT MC SCH (08:00)
[2023-03-23] MEDS ORDERED: EMPAGLIFLOZIN 10 MG TABLET PO SCH (08:00)
[2023-03-23 08:08] LABS: ALANINE AMINOTRANSFERASE 40 U/L (12-78); ALBUMIN 3.5 G/DL (3.4-5.0); ALBUMIN/GLOBULIN RATIO 0.9 (1.1-1.5); ALKALINE PHOSPHATASE 116 IU/L (46-116); ANION GAP 9 (8-16); ASPARTATE AMINO TRANSFERASE 26 U/L (10-37); BILIRUBIN,TOTAL 0.6 MG/DL (0.1-1.0); BLOOD UREA NITROGEN 24 MG/DL (7-18); BUN/CREATININE RATIO 23.8 (10.0-20.0); CALCIUM 9.8 MG/DL (8.5-10.1); CHLORIDE 98 MMOL/L (99-107); CREATININE 1.01 MG/DL (0.60-1.10); GLUCOSE 102 MG/DL (70-104); MAGNESIUM 1.7 MG/DL (1.5-2.4); PHOSPHORUS 4.2 MG/DL (2.3-4.5); POTASSIUM 3.6 MMOL/L (3.5-5.1); SODIUM 136 MMOL/L (135-145); TOTAL PROTEIN 7.5 G/DL (6.4-8.2); eCRCL 54 ML/MIN; eGFR 71 ML/MIN
[2023-03-23 09:04] VITALS: BP 95/59; PULSE 70; RESP 18; TEMP 97.9; O2SAT 94
[2023-03-23] MEDS: traMADol 50MG tablet PO PRN (10:41)
[2023-03-23 11:00] VITALS: BP 109/59; PULSE 65; RESP 16; TEMP 98.3; O2SAT 93
[2023-03-23] MEDS: heparin 10,000 units/1 ML INJ IV PRN (12:25)
--- NOTE | 2023-03-23 13:18 | NUR ---
Malnutrition consult: Pt reports 34 lb or more wt loss with decreased appetite/PO intake per malnutrition risk screen with RN. Pt seen at bedside with SO present. Per SO pt weighed around 220 lbs early this year and reports 60 lb wt loss. Per SO pt weighed 162 lbs prior to recent admit at [facility] with a weight of 154 lbs taken prior to discharge at [facility]. Per SO wt loss is r/t decreased appetite along with getting COVID March 06 and following a restricted diet secondary to femoral bypass January 25 and h/o bleeding ulcers. Pt with scaled wt h/o 162 lbs (standing scale) 01/25 followed by 181-191 lbs (bed scale) 01/25-01/31. Changes in weight that admit possibly r/t using standing scale then bed scale. Per SO pt was previously trying to lose weight. No visible fat or muscle wasting appreciated during RD visit. Per H&P pt with no edema and pt doesn't appear to have any decrease in muscle strength. Pt currently lacks a minimum of two criteria for malnutrition though will continue to monitor s/s of malnutrition. Per SO pt drinks Glucerna BID unless pt doesn't want it. D/w pt/SO recommendation to monitor trends in PO intake prior to initiating ONS, though ONS coupons provided to pt and SO. Food preferences were obtained and d/w dietary, see below. Per d/w pt/SO pt tends to gravitate more towards food such as hot dogs, chips, steak, ribs and pt doesn't much care for vegetables, though SO expresses desire to change this. Pt denies food allergies or difficulty chewing/swallowing. Pt/SO provided with RD contact information and encouraged to reach out if needed. Noted pt placed on a CHO controlled diet though T2DM well controlled with A1c 6.1% which is down from 6.5% 01/17/23. D/w RN recommendation to remove CHO controlled diet restriction. Will continue to follow. Recommendations: 1) Continue heart healthy diet 2) Monitor need for ONS; pt drinks Glucerna BID at home per SO 3) [place] food preferences: Yogurt WL, gelatin WS; Pt likes eggs, hot cereal, turkey, fish, chicken; Pt dislikes soups and peas 4) Routine bowel care 5) Weekly scaled weights Addendum: 03/23/23 at [address] Amended: Links added.
--- NOTE | 2023-03-23 13:29 | NUR ---
Message: ROOM [id number] SNOW CONTRERAS - ASKING IF HE CAN GET OXY IR PRESCRIPTION JUST UNTIL HE SEES HIS DOCTOR ON THIS COMING SATURDAY - PHANTOM PAIN EXACERBATED WITH WEATHER CHANGE - TRISTEN [id number]
[2023-03-23 14:30] VITALS: BP 112/63; PULSE 65; RESP 14; TEMP 98.2; O2SAT 94
--- NOTE | 2023-03-23 16:27 | NUR ---
PT DC'D HOME WITH . NO NEW MEDICATIONS AND NO NEW DIAGNOSIS. EF ACTUALLY IMPROVED TO 40-45% CALLED AND LEFT A MESSAGE FOR DR GU OFFICE ABOUT PATIENT AND THE NEED FOR PATIENT TO HAVE A FOLLOW UP APPT WITH DR LINDSEY BERNAL. PT HAS BEEN REHOSPITALIZED A FEW TIMES IN THE LAST 2 MONTHS. PTS PACER WAS INTERROGATED AND NO BRADYCARDIA WAS EVER DOCUMENTED. IT DID SHOW SOME SVT. PT DID HAVE PHANTOM PAIN WHICH WAS TREATED WITH OXY IR DURING HIS HOSPITAL VISIT AND TOLD PATIENT TO FOLLOW UP WITH HIS PMD HOSPITALIST WOULD NOT PRESCRIBE HIM ANY NARCOTIC. HIS PAIN INCREASES WITH BIG SEASONAL WEATHER CHANGES ( HE IS A [employer] RECIPIENT). ALL DC INSTRUCTIONS EXPLAINED TO THE PATIENT AND HIS WITH BOTH VERBALIZING UNDERSTANDING REGARDING POC. PT LEFT AND WAS ABLE TO TRANSFER HIMSELF TO HIS WHEELCHAIR WITHOUT ASSISTANCE.
== END 2023-03-23 16:15 | disposition home or self-care (01) | DRG 281 ==
LOC: ER 11:49 → ED HOLD 15:03 → UNDOADMIN 15:03 → ED HOLD 18:56 → PCU 3S 03-23 08:39 → ED HOLD 03-23 08:39 → UNDODISIN 03-23 16:15
PROVIDERS: ADMIT Family Medicine; ATTEND Family Medicine
DX: R00.1 Bradycardia, unspecified (principal); I21.A1 Myocardial infarction type 2; E87.1 Hypo-osmolality and hyponatremia; I50.22 Chronic systolic (congestive) heart failure; I47.20 Ventricular tachycardia, unspecified; I25.10 Atherosclerotic heart disease of native coronary artery without angina pectoris; E78.5 Hyperlipidemia, unspecified; R07.9 Chest pain, unspecified; G89.29 Other chronic pain; R74.8 Abnormal levels of other serum enzymes; E11.51 Type 2 diabetes mellitus with diabetic peripheral angiopathy without gangrene; Z95.1 Presence of aortocoronary bypass graft; Z88.0 Allergy status to penicillin; Z88.6 Allergy status to analgesic agent; Z79.899 Other long term (current) drug therapy; Z89.612 Acquired absence of left leg above knee; Z95.0 Presence of cardiac pacemaker; Z86.16 Personal history of COVID-19
CPT/HCPCS: 36415; 71045; 80053; 82948; 83036; 83735; 83880; 84100; 84484; 85025; 85379; 85610; 85730; 87081; 93005; 93306; 96374; 99285; G0378; J1644; J1815

== ENCOUNTER 2024-02-28 12:15 | Inpatient (IN) | payer OTHER, MEDICARE, BC ==
[~2024-02-28] VITALS: Ht 167.6 cm; Wt 79.3 kg
[~2024-02-28 12:15] MED LIST changes: -ASPI-1264 PO; +ASPI-1397 PO; -ATOR-2 PO; +ATOR40TA72 PO; +CEPH250C PO; -CLOP75TA33 PO; +CLOP75TA34 PO; +DOXY100T2 PO; +EMPA10TA PO; +FURO40TA4 PO; +LISI20TA28 PO; -LISI40TA13 PO; +METO25CA PO; -OXYB5TAB16 PO; +OXYB5TAB21 PO; +PANT40TA54 PO; +PRAM0.5T12 PO; -PRAM0.5T3 PO
[2024-02-28 13:25] LABS: BASOPHILS % (AUTO) 0.2 % (0-1); EOSINOPHILS # (AUTO) 0.3 X10'3 (0-0.9); EOSINOPHILS % (AUTO) 2.5 % (0-6); HEMATOCRIT 26.6 % (42.0-52.0); HEMOGLOBIN 8.5 g/dl (14.0-17.9); LYMPHOCYTES # (AUTO) 1.2 X10'3 (1.1-4.8); MEAN CORPUSCULAR HEMOGLOBIN 25.1 PG (27.0-31.0); MEAN CORPUSCULAR VOLUME 78.4 FL (78-98); MEAN PLATELET VOLUME 9.2 FL (7.4-10.4); MONOCYTES # (AUTO) 0.6 X10'3 (0-0.9); MONOCYTES % (AUTO) 6.1 % (2-12); NEUTROPHILS # (AUTO) 8.4 X10'3 (1.8-7.7); NEUTROPHILS % (AUTO) 80.2 % (42-75); PLATELET COUNT 307 X10'3 (140-440); RED CELL DISTRIBUTION WIDTH 21.5 % (11.5-14.5); WHITE BLOOD COUNT 10.4 X10'3 (4.5-11.0)
[2024-02-28 13:41] LABS: ACANTHOCYTES FEW; ALANINE AMINOTRANSFERASE 34 U/L (12-78); ALBUMIN 3.7 G/DL (3.4-5.0); ALBUMIN/GLOBULIN RATIO 1.1 (1.1-1.5); ALKALINE PHOSPHATASE 147 IU/L (46-116); ANION GAP 8 (8-16); ANISOCYTOSIS 3+; ASPARTATE AMINO TRANSFERASE 30 U/L (10-37); BILIRUBIN,TOTAL 0.3 MG/DL (0.1-1.0); BLOOD UREA NITROGEN 24 MG/DL (7-18); BUN/CREATININE RATIO 13.6 (10.0-20.0); CALCIUM 8.9 MG/DL (8.5-10.1); CHLORIDE 96 MMOL/L (99-107); CREATININE 1.77 MG/DL (0.60-1.10); ELLIPTOCYTES FEW; GLUCOSE 100 MG/DL (70-104); LIPASE 27 U/L (16-77); MICROCYTOSIS 1+; PLATELET ESTIMATE NORMAL; POTASSIUM 4.9 MMOL/L (3.5-5.1); SCHISTOCYTES FEW; SODIUM 131 MMOL/L (135-145); TOTAL CARBON DIOXIDE 27.5 MMOL/L (24-32); TOTAL PROTEIN 7.2 G/DL (6.4-8.2); eCRCL 31 ML/MIN; eGFR 37 ML/MIN
[2024-02-28] MEDS ORDERED: potassium Cl 40MEQ/1/2NS 520ml 520 ML IV PRN (13:45)
[2024-02-28] MEDS: pantoprazole 40 MG vial IV ONE (13:45)
[2024-02-28] MEDS ORDERED: acetaminophen 325mg tablet PO PRN (13:45)
[2024-02-28] MEDS ORDERED: magnesium Cl slow-release 64mg tablet PO PRN (13:45)
[2024-02-28] MEDS: normal saline 1000ml 1,000 ML IV SCH (13:45)
[2024-02-28] MEDS ORDERED: magnesium sulf-water 4G/100mL 100 ML IV PRN (13:45)
[2024-02-28] MEDS ORDERED: magnesium sulf-water 2g/50mL 50 ML IV PRN (13:45)
[2024-02-28] MEDS ORDERED: potassium Cl 20 mEq SR tablet PO PRN ×2 (13:45)
[2024-02-28] MEDS ORDERED: ondansetron/PF 4mg/2ml inj IV PRN (13:45)
[2024-02-28] MEDS: pantoprazole 40MG/NS 100ML BAG 100 ML IV ONE (13:46)
[2024-02-28 15:02] LABS: PROTHROMBIN TIME 10.5 SECONDS (9.0-12.0)
[2024-02-28 16:33] LABS: HEMOGLOBIN A1C 6.1 % (4.5-6.2)
[2024-02-28] MEDS ORDERED: ATOR80TA PO (17:16)
[2024-02-28 18:21] LABS: BILIRUBIN,URINE NEGATIVE (Neg); CLARITY,URINE CLEAR (Clear); COLOR,URINE YELLOW (Yellow); GLUCOSE, URINE 500 mg/dl (Neg); KETONES,URINE NEGATIVE (Neg); LEUKOCYTE ESTERASE ,URINE NEGATIVE (Neg); NITRITES, URINE NEGATIVE (Neg); OCCULT BLOOD,URINE NEGATIVE (Neg); PROTEIN,URINE NEGATIVE (Neg); UROBILINOGEN,URINE 0.2 E.U/dL (0.2-1.0)
[2024-02-28 18:25] LABS: UA COLLECTION TYPE NON-SPECIFIED
[2024-02-28] MEDS: pantoprazole 40MG/NS 100ML BAG 100 ML IV SCH (18:46)
[2024-02-28 22:30] VITALS: BP 110/45; PULSE 64; RESP 16; TEMP 97.6; O2SAT 98
[2024-02-28] MEDS: acetaminophen 325mg tablet PO PRN (23:10)
[2024-02-29] VITALS (15 sets, daily range): BP systolic 100–159; BP diastolic 45–84; PULSE 60–75; RESP 12–18; TEMP 97.5–98.1; O2SAT 92–100
[2024-02-29 06:49] LABS: BASOPHILS % (AUTO) 0.4 % (0-1); EOSINOPHILS # (AUTO) 0.2 X10'3 (0-0.9); EOSINOPHILS % (AUTO) 3.6 % (0-6); HEMATOCRIT 24.6 % (42.0-52.0); HEMOGLOBIN 7.8 g/dl (14.0-17.9); LYMPHOCYTES # (AUTO) 0.9 X10'3 (1.1-4.8); LYMPHOCYTES % (AUTO) 14.2 % (21-51); MEAN CORPUSCULAR HEMOGLOBIN 25.1 PG (27.0-31.0); MEAN CORPUSCULAR HGB CONC 31.7 g/dL (33.0-36.5); MEAN CORPUSCULAR VOLUME 79.2 FL (78-98); MONOCYTES # (AUTO) 0.4 X10'3 (0-0.9); MONOCYTES % (AUTO) 6.5 % (2-12); NEUTROPHILS # (AUTO) 4.9 X10'3 (1.8-7.7); NEUTROPHILS % (AUTO) 75.3 % (42-75); PLATELET COUNT 294 X10'3 (140-440); RED BLOOD COUNT 3.11 X10'6 (4.70-6.10); WHITE BLOOD COUNT 6.5 X10'3 (4.5-11.0)
[2024-02-29 07:03] LABS: ALANINE AMINOTRANSFERASE 31 U/L (12-78); ALBUMIN 3.4 G/DL (3.4-5.0); ALBUMIN/GLOBULIN RATIO 1.1 (1.1-1.5); ALKALINE PHOSPHATASE 133 IU/L (46-116); ANION GAP 8 (8-16); ASPARTATE AMINO TRANSFERASE 20 U/L (10-37); BILIRUBIN,TOTAL 0.5 MG/DL (0.1-1.0); BLOOD UREA NITROGEN 19 MG/DL (7-18); BUN/CREATININE RATIO 14.1 (10.0-20.0); CHLORIDE 105 MMOL/L (99-107); CREATININE 1.35 MG/DL (0.60-1.10); GLUCOSE 89 MG/DL (70-104); POTASSIUM 4.7 MMOL/L (3.5-5.1); SODIUM 138 MMOL/L (135-145); TOTAL CARBON DIOXIDE 24.9 MMOL/L (24-32); TOTAL PROTEIN 6.5 G/DL (6.4-8.2); eCRCL 40 ML/MIN; eGFR 51 ML/MIN
[2024-02-29] MEDS: atorvastatin 20mg tablet PO SCH (08:00)
[2024-02-29] MEDS: lisinopril 20mg tablet PO SCH (08:00)
[2024-02-29] MEDS: furosemide 40mg tablet PO SCH (08:00)
[2024-02-29] MEDS: aspirin 81mg, enteric-coated 1 TAB TABLET.DR PO SCH (08:00)
[2024-02-29] MEDS: METOPROLOL SUCCINATE PO SCH (08:00)
[2024-02-29] MEDS: clopidogrel 75mg tablet PO SCH (08:00)
[2024-02-29] MEDS: spironolactone 25 MG tablet PO SCH (08:00)
[2024-02-29] MEDS ORDERED: LIDOcaine 2% Viscous 15ml cup ONE (09:48)
[2024-02-29] MEDS ORDERED: fentaNYL/PF 50MCG/1 ML 2ML syringe ONE (09:48)
[2024-02-29] MEDS ORDERED: MIDAZolam 1 MG/ML 5ML VIAL ONE (09:48)
[2024-02-29] MEDS: PEG 3350/Na sulf,bicarb,Cl/KCl oral sol 4 liter bottle PO ONE (10:30)
[2024-02-29 15:33] LABS: BASOPHILS % (AUTO) 0.5 % (0-1); EOSINOPHILS # (AUTO) 0.4 X10'3 (0-0.9); EOSINOPHILS % (AUTO) 5.3 % (0-6); HEMATOCRIT 29.8 % (42.0-52.0); HEMOGLOBIN 9.1 g/dl (14.0-17.9); LYMPHOCYTES # (AUTO) 1.4 X10'3 (1.1-4.8); LYMPHOCYTES % (AUTO) 17.5 % (21-51); MEAN CORPUSCULAR HEMOGLOBIN 24.7 PG (27.0-31.0); MEAN CORPUSCULAR HGB CONC 30.6 g/dL (33.0-36.5); MEAN CORPUSCULAR VOLUME 80.8 FL (78-98); MEAN PLATELET VOLUME 9.1 FL (7.4-10.4); MONOCYTES # (AUTO) 0.5 X10'3 (0-0.9); MONOCYTES % (AUTO) 5.9 % (2-12); NEUTROPHILS # (AUTO) 5.6 X10'3 (1.8-7.7); NEUTROPHILS % (AUTO) 70.8 % (42-75); PLATELET COUNT 359 X10'3 (140-440); RED BLOOD COUNT 3.68 X10'6 (4.70-6.10); RED CELL DISTRIBUTION WIDTH 21.2 % (11.5-14.5); WHITE BLOOD COUNT 7.9 X10'3 (4.5-11.0)
[2024-02-29] MEDS: pramipexole 0.25mg tablet PO SCH (20:19)
[2024-02-29] MEDS: oxybutynin 5mg tablet PO SCH (20:19)
[2024-02-29] MEDS ORDERED: METFORMIN 500 MG PO SCH (21:00)
[2024-02-29] MEDS: metFORMIN 500mg tablet PO SCH (23:45)
[2024-03-01] VITALS (20 sets, daily range): BP systolic 85–164; BP diastolic 37–84; PULSE 60–72; RESP 8–20; TEMP 97.4–99.6; O2SAT 92–100
[2024-03-01 06:31] LABS: BASOPHILS % (AUTO) 0.5 % (0-1); EOSINOPHILS # (AUTO) 0.3 X10'3 (0-0.9); EOSINOPHILS % (AUTO) 7.4 % (0-6); HEMATOCRIT 23.8 % (42.0-52.0); HEMOGLOBIN 7.7 g/dl (14.0-17.9); LYMPHOCYTES % (AUTO) 22.6 % (21-51); MEAN CORPUSCULAR HEMOGLOBIN 25.1 PG (27.0-31.0); MEAN CORPUSCULAR HGB CONC 32.2 g/dL (33.0-36.5); MEAN CORPUSCULAR VOLUME 77.9 FL (78-98); MEAN PLATELET VOLUME 8.7 FL (7.4-10.4); MONOCYTES # (AUTO) 0.4 X10'3 (0-0.9); MONOCYTES % (AUTO) 7.8 % (2-12); NEUTROPHILS # (AUTO) 2.8 X10'3 (1.8-7.7); NEUTROPHILS % (AUTO) 61.7 % (42-75); PLATELET COUNT 299 X10'3 (140-440); RED BLOOD COUNT 3.06 X10'6 (4.70-6.10); RED CELL DISTRIBUTION WIDTH 20.3 % (11.5-14.5); WHITE BLOOD COUNT 4.6 X10'3 (4.5-11.0)
[2024-03-01 06:55] LABS: ALANINE AMINOTRANSFERASE 29 U/L (12-78); ALBUMIN 3.2 G/DL (3.4-5.0); ALKALINE PHOSPHATASE 122 IU/L (46-116); ANION GAP 8 (8-16); ASPARTATE AMINO TRANSFERASE 27 U/L (10-37); BILIRUBIN,TOTAL 0.4 MG/DL (0.1-1.0); BLOOD UREA NITROGEN 11 MG/DL (7-18); BUN/CREATININE RATIO 10.5 (10.0-20.0); CALCIUM 8.8 MG/DL (8.5-10.1); CHLORIDE 106 MMOL/L (99-107); CREATININE 1.05 MG/DL (0.60-1.10); GLUCOSE 89 MG/DL (70-104); POTASSIUM 4.2 MMOL/L (3.5-5.1); SODIUM 139 MMOL/L (135-145); TOTAL PROTEIN 6.3 G/DL (6.4-8.2); eCRCL 51 ML/MIN; eGFR 68 ML/MIN
[2024-03-01 07:36] LABS: ANISOCYTOSIS 3+; MICROCYTOSIS 1+; PLATELET ESTIMATE NORMAL
[2024-03-01 07:37] LABS: ACANTHOCYTES FEW; ELLIPTOCYTES FEW; POLYCHROMASIA FEW
[2024-03-01] MEDS ORDERED: MIDAZolam 1 MG/ML 5ML VIAL ONE (09:44)
[2024-03-01] MEDS ORDERED: fentaNYL/PF 50MCG/1 ML 2ML syringe ONE (09:44)
[2024-03-01] MEDS ORDERED: diatrozoate meglu/diatrozoate sod (37% iodine) 120ML oral solution PO SCH (11:30)
[2024-03-01] MEDS: diatr meglu/diatrizoate 30ml oral sol.-(3 dose) bottle PO SCH (11:56)
[2024-03-01] MEDS ORDERED: iohexol 300mg/ml 100ml inj. ONE (13:52)
[2024-03-01 14:21] LABS: BASOPHILS % (AUTO) 0.5 % (0-1); EOSINOPHILS # (AUTO) 0.3 X10'3 (0-0.9); EOSINOPHILS % (AUTO) 6.2 % (0-6); HEMATOCRIT 24.5 % (42.0-52.0); HEMOGLOBIN 7.7 g/dl (14.0-17.9); LYMPHOCYTES # (AUTO) 1.1 X10'3 (1.1-4.8); LYMPHOCYTES % (AUTO) 23.4 % (21-51); MEAN CORPUSCULAR HEMOGLOBIN 24.6 PG (27.0-31.0); MEAN CORPUSCULAR HGB CONC 31.3 g/dL (33.0-36.5); MEAN CORPUSCULAR VOLUME 78.7 FL (78-98); MEAN PLATELET VOLUME 8.8 FL (7.4-10.4); MONOCYTES # (AUTO) 0.4 X10'3 (0-0.9); MONOCYTES % (AUTO) 8.2 % (2-12); NEUTROPHILS # (AUTO) 2.9 X10'3 (1.8-7.7); NEUTROPHILS % (AUTO) 61.7 % (42-75); PLATELET COUNT 304 X10'3 (140-440); RED BLOOD COUNT 3.12 X10'6 (4.70-6.10); WHITE BLOOD COUNT 4.7 X10'3 (4.5-11.0)
[2024-03-01 14:32] LABS: ALANINE AMINOTRANSFERASE 29 U/L (12-78); ALBUMIN 3.2 G/DL (3.4-5.0); ALBUMIN/GLOBULIN RATIO 0.8 (1.1-1.5); ALKALINE PHOSPHATASE 123 IU/L (46-116); ANION GAP 8 (8-16); ASPARTATE AMINO TRANSFERASE 23 U/L (10-37); BILIRUBIN,TOTAL 0.4 MG/DL (0.1-1.0); BLOOD UREA NITROGEN 9 MG/DL (7-18); BUN/CREATININE RATIO 8.7 (10.0-20.0); CALCIUM 8.9 MG/DL (8.5-10.1); CHLORIDE 106 MMOL/L (99-107); CREATININE 1.03 MG/DL (0.60-1.10); GLUCOSE 107 MG/DL (70-104); POTASSIUM 4.1 MMOL/L (3.5-5.1); SODIUM 139 MMOL/L (135-145); TOTAL CARBON DIOXIDE 25.5 MMOL/L (24-32); TOTAL PROTEIN 7.2 G/DL (6.4-8.2); eCRCL 52 ML/MIN; eGFR 70 ML/MIN
[2024-03-01 14:57] LABS: ANISOCYTOSIS 3+; MICROCYTOSIS 1+; PLATELET ESTIMATE NORMAL; POIKILOCYTOSIS 2+
[2024-03-01 14:58] LABS: ACANTHOCYTES 1+; ELLIPTOCYTES 1+
[2024-03-01] MEDS: traMADol 50MG tablet PO PRN (19:59)
[2024-03-02] VITALS (8 sets, daily range): BP systolic 112–143; BP diastolic 45–55; PULSE 61–68; RESP 12–18; TEMP 97.9–98.1; O2SAT 95–98
[2024-03-02 07:05] LABS: ALANINE AMINOTRANSFERASE 34 U/L (12-78); ALBUMIN 3.1 G/DL (3.4-5.0); ALKALINE PHOSPHATASE 114 IU/L (46-116); ANION GAP 9 (8-16); ASPARTATE AMINO TRANSFERASE 30 U/L (10-37); BILIRUBIN,TOTAL 0.3 MG/DL (0.1-1.0); BLOOD UREA NITROGEN 12 MG/DL (7-18); BUN/CREATININE RATIO 12.4 (10.0-20.0); CALCIUM 8.7 MG/DL (8.5-10.1); CHLORIDE 106 MMOL/L (99-107); CREATININE 0.97 MG/DL (0.60-1.10); GLUCOSE 113 MG/DL (70-104); POTASSIUM 4.4 MMOL/L (3.5-5.1); SODIUM 139 MMOL/L (135-145); TOTAL CARBON DIOXIDE 23.7 MMOL/L (24-32); TOTAL PROTEIN 6.3 G/DL (6.4-8.2); eCRCL 56 ML/MIN; eGFR 75 ML/MIN
[2024-03-02] MEDS: pantoprazole 40mg Tablet.DR PO SCH (07:42)
[2024-03-02] MEDS ORDERED: FERR324T4 PO (10:53)
[2024-03-02] MEDS ORDERED: PANT40TA54 PO (10:53)
[2024-03-02] MEDS ORDERED: METF-900 PO (10:53)
[2024-03-02] MEDS ORDERED: POLY17PO10 PO (10:53)
[2024-03-02] MEDS ORDERED: LISI20TA28 PO (10:53)
[2024-03-02 12:03] LABS: HEMATOCRIT 23.6 % (43.5-53.7); HEMOGLOBIN 7.6 G/DL (12.5-16.3); LYMPHOCYTES % 26 % (24-44); PLATELET COUNT 295 X10'3 (130-400); RED BLOOD COUNT 3.03 X10'6 (4.30-5.90); SEGMENTED NEUTROPHILS % 58 % (36-66); WHITE BLOOD COUNT 4.7 X10'3 (4.5-11.0)
[2024-03-02 12:04] LABS: BASOPHILS % 0 % (0-2); EOSINOPHILS # (AUTO) 0.3 X10'3 (0-0.9); EOSINOPHILS % (AUTO) 7 % (0-5); LYMPHOCYTES # (AUTO) 1.2 X10'3 (0.6-4.1); MONOCYTES # (AUTO) 0.4 X10'3 (0-0.9); MONOCYTES % 9 % (0-12); NEUTROPHILS # (AUTO) 2.7 X10'3 (>=1.4)
== END 2024-03-02 12:35 | disposition home or self-care (01) | DRG 368 ==
LOC: ER 12:16 → ED HOLD 13:41 → UNDOADMIN 13:41 → ED HOLD 13:46 → UNDOADMIN 15:30 → ED HOLD 22:15 → PCU 3S 22:15 → UNDODISIN 03-02 12:35
PROVIDERS: ADMIT Internal Medicine; ATTEND Internal Medicine
PROC: 0DB78ZX Excision of Stomach, Pylorus, Via Natural or Artificial Opening Endoscopic, Diagnostic (ICD-10-PCS; principal; 2024-02-29)
PROC: 5A09357 Assistance with Respiratory Ventilation, Less than 24 Consecutive Hours, Continuous Positive Airway Pressure (ICD-10-PCS; 2024-02-29)
PROC: 0DJD8ZZ Inspection of Lower Intestinal Tract, Via Natural or Artificial Opening Endoscopic (ICD-10-PCS; 2024-03-01)
PROC: BW211ZZ Computerized Tomography (CT Scan) of Abdomen and Pelvis using Low Osmolar Contrast (ICD-10-PCS; 2024-03-01)
PROC: 5A09357 Assistance with Respiratory Ventilation, Less than 24 Consecutive Hours, Continuous Positive Airway Pressure (ICD-10-PCS; 2024-03-01)
PROC: 5A09357 Assistance with Respiratory Ventilation, Less than 24 Consecutive Hours, Continuous Positive Airway Pressure (ICD-10-PCS; 2024-03-02)
DX: K20.91 Esophagitis, unspecified with bleeding (principal); K29.71 Gastritis, unspecified, with bleeding; N17.9 Acute kidney failure, unspecified; E86.0 Dehydration; D64.9 Anemia, unspecified; I25.10 Atherosclerotic heart disease of native coronary artery without angina pectoris; N40.0 Benign prostatic hyperplasia without lower urinary tract symptoms; G47.33 Obstructive sleep apnea (adult) (pediatric); E11.51 Type 2 diabetes mellitus with diabetic peripheral angiopathy without gangrene; K57.30 Diverticulosis of large intestine without perforation or abscess without bleeding; I50.9 Heart failure, unspecified; I11.0 Hypertensive heart disease with heart failure; Z87.11 Personal history of peptic ulcer disease; Z79.02 Long term (current) use of antithrombotics/antiplatelets; Z87.891 Personal history of nicotine dependence; Z95.1 Presence of aortocoronary bypass graft; I73.9 Peripheral vascular disease, unspecified
CPT/HCPCS: 36415; 43239; 45378; 74178; 80053; 81003; 82948; 83036; 83605; 83690; 85008; 85025; 85610; 87040; 87081; 94760; 97116; 97161; 97530; 99152; 99153; 99285; A4620; A6212; G0378; J2250; J2470; J3010; J7030; Q9963; Q9967

== ENCOUNTER 2024-08-31 21:32 | Inpatient (IN) | payer MEDICARE, BC, OTHER ==
[~2024-08-31] VITALS: Ht 167.6 cm; Wt 77.3 kg
[~2024-08-31 21:32] MED LIST changes: +ATOR-429 PO; -ATOR40TA72 PO; -CEPH250C PO; -DOCU100C40 PO; -DOXY100T2 PO; -EMPA10TA PO; +FERR324T4 PO; -FURO40TA4 PO; -GUAN1TAB28 PO; -OMEG-5 PO; -SEMA0.258 SQ
[2024-08-31 21:57] LABS: BASOPHILS % (AUTO) 0.2 % (0-1); EOSINOPHILS # (AUTO) 0.5 X10'3 (0-0.9); EOSINOPHILS % (AUTO) 3.9 % (0-6); HEMATOCRIT 44.7 % (42.0-52.0); HEMOGLOBIN 15.1 g/dl (14.0-17.9); LYMPHOCYTES # (AUTO) 1.5 X10'3 (1.1-4.8); LYMPHOCYTES % (AUTO) 11.3 % (21-51); MEAN CORPUSCULAR HEMOGLOBIN 30.5 PG (27.0-31.0); MEAN CORPUSCULAR HGB CONC 33.8 g/dL (33.0-36.5); MEAN CORPUSCULAR VOLUME 90.2 FL (78-98); MEAN PLATELET VOLUME 9.4 FL (7.4-10.4); MONOCYTES % (AUTO) 7.9 % (2-12); NEUTROPHILS % (AUTO) 76.7 % (42-75); PLATELET COUNT 247 X10'3 (140-440); RED BLOOD COUNT 4.95 X10'6 (4.70-6.10); RED CELL DISTRIBUTION WIDTH 16.7 % (11.5-14.5); WHITE BLOOD COUNT 13.1 X10'3 (4.5-11.0)
[2024-08-31 22:12] LABS: ALANINE AMINOTRANSFERASE 33 U/L (12-78); ALBUMIN 4.1 G/DL (3.4-5.0); ALBUMIN/GLOBULIN RATIO 1.1 (1.1-1.5); ALKALINE PHOSPHATASE 177 IU/L (46-116); ANION GAP 15 (8-16); ASPARTATE AMINO TRANSFERASE 9 U/L (10-37); BILIRUBIN,TOTAL 1.1 MG/DL (0.1-1.0); BLOOD UREA NITROGEN 65 MG/DL (7-18); BUN/CREATININE RATIO 34.9 (10.0-20.0); CALCIUM 8.6 MG/DL (8.5-10.1); CHLORIDE 100 MMOL/L (99-107); CREATININE 1.86 MG/DL (0.60-1.10); GLUCOSE 140 MG/DL (70-104); SODIUM 138 MMOL/L (135-145); TOTAL CARBON DIOXIDE 23.3 MMOL/L (24-32); eCRCL 29 ML/MIN; eGFR 35 ML/MIN
[2024-08-31 22:19] LABS: LIPASE 16 U/L (16-77); PRO BRAIN NATRIURETIC PEPTIDE 1253 PG/ML (0-450)
[2024-08-31] MEDS: normal saline 1000ml 1,000 ML IV ONE (22:35)
[2024-08-31 22:36] LABS: ANISOCYTOSIS 1+; BURR CELLS FEW; PLATELET ESTIMATE NORMAL; POIKILOCYTOSIS FEW
[2024-08-31] MEDS: ondansetron/PF 4mg/2ml inj IV ONE (22:36)
[2024-08-31] MEDS: famotidine/PF 10 mg/ml inj IV ONE (22:36)
[2024-08-31] MEDS: fentaNYL/PF 50MCG/1 ML 2ML syringe IV ONE (22:39)
[2024-09-01] MEDS ORDERED: mag hydrox/Alum hydrox/simeth 30ml oral suspension PO PRN (01:00)
[2024-09-01] MEDS ORDERED: magnesium sulf-water 4G/100mL 100 ML IV PRN (01:00)
[2024-09-01] MEDS ORDERED: potassium Cl 40MEQ/1/2NS 520ml 520 ML IV PRN (01:00)
[2024-09-01] MEDS ORDERED: magnesium sulf-water 2g/50mL 50 ML IV PRN (01:00)
[2024-09-01] MEDS ORDERED: potassium Cl 20 mEq SR tablet PO PRN ×2 (01:00)
[2024-09-01] MEDS ORDERED: acetaminophen 325mg tablet PO PRN (01:00)
[2024-09-01] MEDS ORDERED: ondansetron/PF 4mg/2ml inj IV PRN (01:00)
[2024-09-01] MEDS ORDERED: magnesium Cl slow-release 64mg tablet PO PRN (01:00)
[2024-09-01] MEDS ORDERED: magnesium hydroxide 30ml (MOM) UD suspension PO PRN (01:00)
[2024-09-01] MEDS: fentaNYL/PF 50MCG/1 ML 2ML syringe IV ONE ×2 (01:23→03:36)
[2024-09-01] MEDS: normal saline 1000ml 1,000 ML IV ONE (01:23)
[2024-09-01] MEDS: CefTRIAXone/D5W-Rocephin 1gm 50 ML IV ONE (01:23)
[2024-09-01] MEDS: normal saline 1000ml 1,000 ML IV SCH (02:01)
[2024-09-01] MEDS: pantoprazole 40 MG vial IV SCH (02:05)
[2024-09-01 02:06] LABS: C-REACTIVE PROTEIN 8.32 MG/DL (0.0-0.5); CHOL/HDL RATIO 2.3 (0.00-4.99); CHOLESTEROL 108 MG/DL (0-200); HDL CHOLESTEROL 47 MG/DL (35-60); LDL CHOLESTEROL 38 MG/DL (50-100); TRIGLYCERIDES 183 MG/DL (20-135)
[2024-09-01 02:23] LABS: HEMOGLOBIN A1C 6.4 % (4.5-6.2)
[2024-09-01] MEDS ORDERED: FERR324T23 PO (02:24)
[2024-09-01] MEDS ORDERED: PANT40TA54 PO (03:20)
[2024-09-01] MEDS ORDERED: DOCU100C40 PO (03:20)
[2024-09-01] MEDS ORDERED: FURO-149 PO (03:20)
[2024-09-01] MEDS ORDERED: TEN1T CORPAK (03:20)
[2024-09-01] MEDS ORDERED: OMEG-167 PO (03:20)
[2024-09-01] MEDS ORDERED: SEMA2PEN SUBCUT (03:20)
[2024-09-01] MEDS ORDERED: LISI40TA13 PO (03:20)
[2024-09-01] MEDS ORDERED: METF-900 PO (03:20)
[2024-09-01] MEDS ORDERED: FLO0.4C PO (03:20)
[2024-09-01] MEDS ORDERED: EMPA10TA PO (03:20)
[2024-09-01 04:28] VITALS: BP 149/67; PULSE 92; RESP 18; TEMP 96.7; O2SAT 98
[2024-09-01] MEDS: acetaminophen 1,000mg/100ml IV 100 ML IV PRN (04:49)
[2024-09-01 06:00] VITALS: BP 137/66; PULSE 89; RESP 16; TEMP 97.5; O2SAT 96
[2024-09-01 08:00] VITALS: RESP 18; O2SAT 95
[2024-09-01] MEDS: K and/or MAG REPLACEMENT MC SCH (08:00)
[2024-09-01] MEDS ORDERED: docusate sod 100mg capsule PO SCH (08:00)
[2024-09-01 08:41] LABS: MAGNESIUM 1.7 MG/DL (1.5-2.4); POTASSIUM 4.1 MMOL/L (3.5-5.1)
[2024-09-01] MEDS: CefTRIAXone/D5W-Rocephin 1gm 50 ML IV SCH (09:59)
[2024-09-01 10:00] VITALS: BP 145/60; PULSE 84; TEMP 99.1; O2SAT 98
[2024-09-01 11:11] LABS: BILIRUBIN,URINE NEGATIVE (Neg); CLARITY,URINE CLEAR (Clear); COLOR,URINE YELLOW (Yellow); GLUCOSE, URINE >=1000 mg/dl (Neg); KETONES,URINE NEGATIVE (Neg); LEUKOCYTE ESTERASE ,URINE NEGATIVE (Neg); NITRITES, URINE NEGATIVE (Neg); OCCULT BLOOD,URINE NEGATIVE (Neg); PH,URINE 5.5 (4.8-8.0); PROTEIN,URINE NEGATIVE (Neg); UROBILINOGEN,URINE 0.2 E.U/dL (0.2-1.0)
[2024-09-01 11:15] LABS: UA COLLECTION TYPE URINAL
[2024-09-01 11:19] LABS: BACTERIA,URINE FEW /HPF (Neg); RBC,URINE 0-2 /HPF (0-2); SQUAMOUS EPITHELIAL CELL,UR FEW /LPF (FEW); WBC,URINE 0-4 /HPF (0-4)
[2024-09-01 11:23] LABS: BASOPHILS % (AUTO) 0.2 % (0-1); EOSINOPHILS # (AUTO) 0.1 X10'3 (0-0.9); EOSINOPHILS % (AUTO) 0.8 % (0-6); HEMATOCRIT 41.1 % (42.0-52.0); HEMOGLOBIN 13.8 g/dl (14.0-17.9); LYMPHOCYTES # (AUTO) 0.6 X10'3 (1.1-4.8); MEAN CORPUSCULAR HEMOGLOBIN 30.6 PG (27.0-31.0); MEAN CORPUSCULAR HGB CONC 33.5 g/dL (33.0-36.5); MEAN CORPUSCULAR VOLUME 91.2 FL (78-98); MEAN PLATELET VOLUME 9.7 FL (7.4-10.4); MONOCYTES # (AUTO) 0.9 X10'3 (0-0.9); MONOCYTES % (AUTO) 12.8 % (2-12); NEUTROPHILS # (AUTO) 5.8 X10'3 (1.8-7.7); NEUTROPHILS % (AUTO) 78.2 % (42-75); PLATELET COUNT 210 X10'3 (140-440); RED BLOOD COUNT 4.51 X10'6 (4.70-6.10); RED CELL DISTRIBUTION WIDTH 16.7 % (11.5-14.5); WHITE BLOOD COUNT 7.4 X10'3 (4.5-11.0)
[2024-09-01 11:42] LABS: TOTAL PROTEIN,URINE RANDOM 15.4 MG/DL
[2024-09-01 11:43] LABS: UA EOSINOPHILS NO EOS /HPF
[2024-09-01 18:00] VITALS: BP 142/46; PULSE 53; RESP 16; TEMP 98.2; O2SAT 97
[2024-09-01] MEDS: diatr meglu/diatrizoate 30ml oral sol.-(3 dose) bottle PO SCH (21:08)
[2024-09-02] VITALS (7 sets, daily range): BP systolic 129–150; BP diastolic 54–67; PULSE 66–72; RESP 14–18; TEMP 97.5–98.2; O2SAT 94–99
[2024-09-02 05:36] LABS: BASOPHILS % (AUTO) 0.2 % (0-1); EOSINOPHILS # (AUTO) 0.5 X10'3 (0-0.9); EOSINOPHILS % (AUTO) 6.9 % (0-6); HEMATOCRIT 36.7 % (42.0-52.0); HEMOGLOBIN 12.3 g/dl (14.0-17.9); LYMPHOCYTES # (AUTO) 0.9 X10'3 (1.1-4.8); LYMPHOCYTES % (AUTO) 13.7 % (21-51); MEAN CORPUSCULAR HGB CONC 33.7 g/dL (33.0-36.5); MEAN CORPUSCULAR VOLUME 91.9 FL (78-98); MONOCYTES # (AUTO) 0.6 X10'3 (0-0.9); MONOCYTES % (AUTO) 9.6 % (2-12); NEUTROPHILS # (AUTO) 4.6 X10'3 (1.8-7.7); NEUTROPHILS % (AUTO) 69.6 % (42-75); PLATELET COUNT 172 X10'3 (140-440); RED BLOOD COUNT 3.99 X10'6 (4.70-6.10); RED CELL DISTRIBUTION WIDTH 16.8 % (11.5-14.5); WHITE BLOOD COUNT 6.6 X10'3 (4.5-11.0)
[2024-09-02 05:52] LABS: ALANINE AMINOTRANSFERASE 18 U/L (12-78); ALBUMIN 2.8 G/DL (3.4-5.0); ALBUMIN/GLOBULIN RATIO 0.8 (1.1-1.5); ALKALINE PHOSPHATASE 118 IU/L (46-116); ANION GAP 8 (8-16); ASPARTATE AMINO TRANSFERASE 14 U/L (10-37); BILIRUBIN,TOTAL 0.6 MG/DL (0.1-1.0); BLOOD UREA NITROGEN 30 MG/DL (7-18); BUN/CREATININE RATIO 31.6 (10.0-20.0); CALCIUM 8.3 MG/DL (8.5-10.1); CHLORIDE 113 MMOL/L (99-107); CREATININE 0.95 MG/DL (0.60-1.10); GLUCOSE 98 MG/DL (70-104); MAGNESIUM 1.8 MG/DL (1.5-2.4); POTASSIUM 4.3 MMOL/L (3.5-5.1); SODIUM 145 MMOL/L (135-145); TOTAL CARBON DIOXIDE 24.5 MMOL/L (24-32); TOTAL PROTEIN 6.2 G/DL (6.4-8.2); eCRCL 57 ML/MIN; eGFR 76 ML/MIN
[2024-09-02] MEDS ORDERED: iohexol 350MG/ML 100ml bottle IV ONE (11:13)
[2024-09-03 05:29] LABS: BASOPHILS % (AUTO) 0.2 % (0-1); EOSINOPHILS # (AUTO) 0.4 X10'3 (0-0.9); EOSINOPHILS % (AUTO) 6.8 % (0-6); HEMATOCRIT 32.1 % (42.0-52.0); HEMOGLOBIN 10.9 g/dl (14.0-17.9); LYMPHOCYTES # (AUTO) 1.1 X10'3 (1.1-4.8); LYMPHOCYTES % (AUTO) 16.4 % (21-51); MEAN CORPUSCULAR HEMOGLOBIN 30.8 PG (27.0-31.0); MEAN CORPUSCULAR HGB CONC 33.8 g/dL (33.0-36.5); MEAN PLATELET VOLUME 10.1 FL (7.4-10.4); MONOCYTES # (AUTO) 0.6 X10'3 (0-0.9); NEUTROPHILS # (AUTO) 4.4 X10'3 (1.8-7.7); NEUTROPHILS % (AUTO) 67.6 % (42-75); PLATELET COUNT 148 X10'3 (140-440); RED BLOOD COUNT 3.53 X10'6 (4.70-6.10); RED CELL DISTRIBUTION WIDTH 16.5 % (11.5-14.5); WHITE BLOOD COUNT 6.5 X10'3 (4.5-11.0)
[2024-09-03 05:51] LABS: ALANINE AMINOTRANSFERASE 14 U/L (12-78); ALBUMIN 2.5 G/DL (3.4-5.0); ALBUMIN/GLOBULIN RATIO 0.8 (1.1-1.5); ALKALINE PHOSPHATASE 100 IU/L (46-116); ANION GAP 7 (8-16); ASPARTATE AMINO TRANSFERASE 11 U/L (10-37); BILIRUBIN,TOTAL 0.5 MG/DL (0.1-1.0); BLOOD UREA NITROGEN 13 MG/DL (7-18); BUN/CREATININE RATIO 18.6 (10.0-20.0); CALCIUM 8.1 MG/DL (8.5-10.1); CHLORIDE 111 MMOL/L (99-107); GLUCOSE 89 MG/DL (70-104); MAGNESIUM 1.7 MG/DL (1.5-2.4); POTASSIUM 3.7 MMOL/L (3.5-5.1); SODIUM 142 MMOL/L (135-145); TOTAL CARBON DIOXIDE 24.5 MMOL/L (24-32); TOTAL PROTEIN 5.5 G/DL (6.4-8.2); eCRCL 77 ML/MIN; eGFR > 90 ML/MIN
[2024-09-03 06:00] VITALS: BP 139/67; PULSE 76; RESP 18; TEMP 98.1; O2SAT 95
[2024-09-03 10:29] VITALS: RESP 18; O2SAT 98
[2024-09-03 17:00] VITALS: BP 116/56; PULSE 58; RESP 18; TEMP 97.5; O2SAT 98
== END 2024-09-03 14:55 | disposition home or self-care (01) | DRG 388 ==
LOC: ER 21:32 → ED HOLD 09-01 01:05 → UNDOADMIN 09-01 01:05 → ED HOLD 09-01 02:39 → SUR 3N 09-01 04:31 → ED HOLD 09-01 04:31 → SUR 3N 09-02 16:23
PROVIDERS: ADMIT Surgery Surgical Critical Care; ATTEND Internal Medicine
PROC: BW25YZZ Computerized Tomography (CT Scan) of Chest, Abdomen and Pelvis using Other Contrast (ICD-10-PCS; 2024-08-31)
PROC: 0D9670Z Drainage of Stomach with Drainage Device, Via Natural or Artificial Opening (ICD-10-PCS; principal; 2024-09-01)
PROC: B4201ZZ Computerized Tomography (CT Scan) of Abdominal Aorta using Low Osmolar Contrast (ICD-10-PCS; 2024-09-02)
PROC: B4241ZZ Computerized Tomography (CT Scan) of Superior Mesenteric Artery using Low Osmolar Contrast (ICD-10-PCS; 2024-09-02)
PROC: B4281ZZ Computerized Tomography (CT Scan) of Bilateral Renal Arteries using Low Osmolar Contrast (ICD-10-PCS; 2024-09-02)
PROC: B42C1ZZ Computerized Tomography (CT Scan) of Pelvic Arteries using Low Osmolar Contrast (ICD-10-PCS; 2024-09-02)
PROC: B42H1ZZ Computerized Tomography (CT Scan) of Bilateral Lower Extremity Arteries using Low Osmolar Contrast (ICD-10-PCS; 2024-09-02)
PROC: B4211ZZ Computerized Tomography (CT Scan) of Celiac Artery using Low Osmolar Contrast (ICD-10-PCS; 2024-09-02)
DX: K56.609 Unspecified intestinal obstruction, unspecified as to partial versus complete obstruction (principal); N17.0 Acute kidney failure with tubular necrosis; I77.4 Celiac artery compression syndrome; I70.1 Atherosclerosis of renal artery; E11.51 Type 2 diabetes mellitus with diabetic peripheral angiopathy without gangrene; E11.22 Type 2 diabetes mellitus with diabetic chronic kidney disease; I25.10 Atherosclerotic heart disease of native coronary artery without angina pectoris; N18.9 Chronic kidney disease, unspecified; D72.829 Elevated white blood cell count, unspecified; I50.9 Heart failure, unspecified; Z88.0 Allergy status to penicillin; Z88.2 Allergy status to sulfonamides; Z88.5 Allergy status to narcotic agent; Z79.82 Long term (current) use of aspirin; Z79.01 Long term (current) use of anticoagulants; Z79.899 Other long term (current) drug therapy; Z95.1 Presence of aortocoronary bypass graft
CPT/HCPCS: 36415; 43762; 71045; 71250; 74018; 74174; 74176; 80053; 80061; 81001; 82570; 82948; 83036; 83605; 83690; 83735; 83880; 83930; 83935; 84132; 84145; 84156; 84300; 84484; 85008; 85025; 85651; 86140; 87081; 87207; 93005; 93306; 93976; 99285; G0378; J0131; J0696; J2405; J2470; J3010; J3490; J7030; Q9963; Q9967